=== PATIENT | male | born 1940 | race Caucasian/White ===

== ENCOUNTER 2025-02-12 12:49 | Emergency (ER) | payer MEDICARE, SELFPAY ==
--- OUTSIDE RECORDS SUMMARY | 2025-01-17 09:30 | XMS_ITS | Encounter Summary ---
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 [address] [place] [phone] Phone: tel: fax: [facility] Referral ID Status Reason Start Date Expiration Date Visits Re quested Visits Authorized [id number] Closed 11/30/2024 06/01/2026 1 1 Encounter Details Date Type Department Care Team (Latest Contact Info) Description 01/17/2025 9:30 AM CDT Comprehensive Visit Division of Hematology in [place], [place] [address] [place] [phone] Myron Burrows M.B.B.S. 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 No 10/20/2024 Hunger Vital Sign Answer Date Recorded Within the past 12 months, y ou worried that your food would run out before you got the money to buy more. Never true 10/21/19 25 Within the past 12 months, t he food you bought just didn't last and you didn't have money to get more. Never true 10/20/2024 PRAPARE - Transportation Answer Date Re corded In the past 12 months, has l ack of transportation kept you from medical appointments or from getting medications? No 10/10 In the past 12 months, has l ack of transportation kept you from meetings, work, or from getting things needed for daily living? No 10/20/2024 Housing Stability Answer Date Recorded What is your living situation today? 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BLawrenceS. - 01/17/2025 9:30 AM CDT SUBJECTIVE REFERRAL SOURCE: Marixa Shaikh M.D. CHIEF COMPLAINT/REASON FOR VISIT Dual TET2, PHF6, mutated CMML-1 with -Y. HISTORY OF PRESENT ILLNESS Mr. Malick Walsh is a very pleasant 84-year-old gentleman. The outline of his history is as follows: In February 2024, his CBC had revealed a hemoglobin of 9.3, WBC 7.4, ANC 2.9, AMC 1.7, and a platelet count of 183,000. On 11/08/2024, he underwent a bone marrow biopsy that was noted to be mildly hypercellular (60%) with normal trilineage hematopoiesis. There was a monotypic kappa light chain restricted plasma cell clone seen occupying less than 5% of cellularity. Multiple small monotypic B-cell populations were noted. There was no amyloid deposition. The karyotype revealed 45,X,-Y (20). Next-generation sequencing identified dual TET2 mutations, p.[id number] frameshift-43%, p.[id number] frameshift-44%. There were 3 PHF6 mutations p.arginine 129* - 37%, p.[id number] - 7% and p.isoleucine 314 threonine - 9%. On 12/15/2024, his hemoglobin was 9.3, MCV 97, WBC 5.5, AMC 1.06 and platelet count 123,000. I had the pleasure meeting with Mr. Walsh and his in clinic today. Today is their 63rd wed anniversary. Mr. Walsh is facing challenges from orthostatic syncope and weakness in his lower extremities. He is being evaluated by Neurology for the same. His systolic blood pressures today in clinic are elevated, but he states that is not the case at home. He is willing to record them at home and monitor them closely with his primary care physician. He does not have a history of fevers, drenching night sweats, chills, anorexia, nausea, vomiting, bladder or bowel complaints. His ECOG performance status is 2. MEDICAL HISTORY Prostatic adenocarcinoma diagnosed in 2013, status post radiation therapy with androgen deprivation. Obstructive sleep apnea, on CPAP. 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 Autonomic neuropathy. Orthostatic hypotension. Diverticulitis. Glaucoma. SOCIAL HISTORY The patient is and lives in [place]. He quit smoking in 1988. He does have a history of social alcohol intake. He is currently retired. FAMILY HISTORY No family history of hematological disorders. REVIEW OF SYSTEMS As mentioned in the HPI. OBJECTIVE Blood Pressure: (!) 189/84 (01/17/2025 9:19 AM) Temperature: 36.7 ??C (01/17/2025 9:19 AM) Temp Source: Oral (01/17/2025 9:19 AM) Pulse Rate: (!) 59 (01/17/2025 9:19 AM) BMI (Calculated): 20.8 kg/m?? (01/17/2025 9:19 AM) Height: 180 cm (01/17/2025 9:19 AM) Weight: 67.3 kg (01/17/2025 9:19 AM) PHYSICAL EXAMINATION General: The patient is alert, oriented, in no acute distress. Eyes: Mild pallor. No icterus. ENT: Examined and normal. Lymph: No cervical, axillary, inguinal lymphadenopathy. Heart: Examined and normal. Lungs: Examined and normal. Abdomen: No hepatosplenomegaly. No masses. Extremities: No edema. ASSESSMENT / PLAN #1 Dual TET2 and triple PHF6, mutant CMML-1 with -Y Mr. Walsh is an 84-year-old gentleman who has had sustained relative and absolute monocytosis along with anemia and mild thrombocytopenia. A bone marrow biopsy in October this year has confirmed a diagnosis of CMML-1. He has somatic mutations involving TET2 and PHF6. According to the BLAST-molecular model, his score is 1., translating to a median survival of 74 months, along with a 5-year overall survival rate of 60%. This is largely driven by the fact that the combination of TET2 and PHF6 mutations are favorable in CMML. BLAST: a globally applicable and molecularly versatile survival model for chronic myelomonocytic leukemia - PubMed It remains unclear whether his anemia is purely from chronic myelomonocytic leukemia or from alternative etiologies. We will obtain a comprehensive anemia workup today. If this is attributable to hisCMML, we will continue to monitor and see if options such as erythropoiesis-stimulating agent therapy may be feasible. We will try and avoid danazol, given his history of prostate cancer. He will also be eligible for LS 178, the pilot boat captain clinical trial testing the safety and efficacy of high-dose IV ascorbic acid with decitabine for newly diagnosed and treatment requiring TET2 mutant CMML. #2 Triclonal gammopathy #3 Monoclonal B lymphocytosis #4 Autonomic neuropathy, with orthostatic hypotension I spent 60 minutes with Mr. Walsh and his outlining my approach to his newly diagnosed CMML. I will call and update him with pending results. Crystal Prater CT CT Job ID: [id number]/gld documented in this encounter Plan of Treatment Upcoming Encounters Date Type Department Care Team (Late st Contact Info) Description 02/24/2025 10:00 AM CDT Clinical Support - [facility] Division of Hematology in [place], [place] [address] [place] [address] documented as of this encounter Results * (ABNORMAL) Creatinine with Estimated GFR (01/17/2025 3:02 PM CDT) Creatinine 1.25 0.74 - 1.35 mg/dL 01/17/2025 4:16 PM CDT DTL Estimated GFR (eGFR) 57(L) >=60 mL/min/BSA 01/17/2025 4:16 PM CDT DTL Comment: Estimated GFR calculated using the 2020 CKD_EPI creatinine equation. Blood (Blood, Venous) 01/17/2025 3:02 PM CDT 01/17/2025 3:26 PM CDT Myron Rojas LAB BLOOD ADD-ON Final Result [facility] [address] [place] [address], [facility] DTL [facility] [address] [place] [address] * (ABNORMAL) Testosterone, Total, Bioavailable, and Free (01/17/2025 3:02 PM CDT) Testosterone, Bioavailable, S 17 ng/dL 01/20/2025 1:41 AM CDT [facility] Comment: ----REFERENCE VALUE---- Reference values have not been established for patients who are greater than 70 years of age. ----ADDITIONAL INFORMATION---- Testing performed by Liquid Chromatography-Tandem Mass Spectrometry (LC-MS/MS). This test was developed and its performance characteristics determined by [facility] in a manner consistent with CLIA requirements. This test has not been cleared or approved by the U.S. Food and Drug Administration. Testosterone, Total by Mass Spectrometry, Serum 180(L) 240 - 950 ng/dL 01/19/2025 1:03 PM CDT [facility] Comment: ----ADDITIONAL INFORMATION---- Testing performed by Liquid Chromatography-Tandem Mass Spectrometry (LC-MS/MS). This test was developed and its performance characteristics determined by [facility] in a manner consistent with CLIA requirements. This test has not been cleared or approved by the U.S. Food and Drug Administration. Testosterone, Free, S 3.57 2.88 - 10.5 ng/dL 01/21/2025 3:57 PM CDT [facility] Comment: ----ADDITIONAL INFORMATION---- This test was developed and its performance characteristics determined by [facility] in a manner consistent with CLIA requirements. This test has not been cleared or approved by the U.S. Food and Drug Administration. Blood (Blood, Venous) 01/17/2025 3:02 PM CDT 01/18/2025 7:29 AM CDT Myron Mendoza.S. LAB BLOOD NON ADD-ON F inal Result [facility] [address] [place] [address] [facility] [address] [place] [address] [place] [address] * Erythropoietin (EPO) (01/17/2025 3:02 PM CDT) Pathologist [facility] Erythropoietin (EPO), S 10.8 2.6 - 18.5 mIU/mL 01/18/2025 8:44 AM CDT [facility] Blood (Blood, Venous) 01/17/2025 3:02 PM CDT 01/18/2025 7:39 AM CDT Myron TraceyBLawrenceS. LAB BLOOD ADD-ON Final Result Performing Organization Address City/[facility]/ZIP Co de Phone Number [facility] [address] [place] [address] [facility] [address] [place] [address] * (ABNORMAL) Reticulocyte Profile (01/17/2025 3:02 PM CDT) Reticulocytes, B 1.57 0.60 - 2.71 % 01/17/2025 3:40 PM CDT DTL Absolute Reticulocyte 45.7 30.4 - 110.9 x10(9)/L 01/17/2025 3:40 PM CDT DTL Immature Reticulocyte Fraction 6.6 2.3 - 13.4 % 01/17/2025 3:40 PM CDT DTL Reticulocyte Hemoglobin 32.7 30.0 - 37.6 pg 01/17/2025 3:40 PM CDT DTL Erythrocytes 2.91(L) 4.35 - 5.65 x10(12)/L 01/17/2025 3:40 PM CDT DTL Blood (Blood, Venous) 01/17/2025 3:02 PM CDT 01/17/2025 3:27 PM CDT Myron FragaS. LAB BLOOD ADD-ON Final Result Performing Organization Address City/[facility]/ZIP Co de Phone Number [facility] [address] [place] [address], [facility] [address] [place] [address] * LD (Lactate Dehydrogenase) (01/17/2025 3:02 PM CDT) Lactate Dehydrogenase (LD), S 128 122 - 222 U/L 01/17/2025 4:16 PM CDT DTL Blood (Blood, Venous) 01/17/2025 3:02 PM CDT 01/17/2025 3:26 PM CDT Myron FragaS. LAB BLOOD NON ADD-ON F inal Result Performing Organization Address City/[facility]/ZIP Co de Phone Number [facility] [address] [place] [address], [place] DTL [facility] [address] [place] [address] * (ABNORMAL) Copper (01/17/2025 3:02 PM CDT) Copper, S 136(H) 73 - 129 mcg/dL 01/18/2025 10:09 AM CDT [facility] Comment: ----ADDITIONAL INFORMATION---- This test was developed and its performance characteristics determined by [facility] in a manner consistent with CLIA requirements. This test has not been cleared or approved by the U.S. Food and Drug Administration. Blood (Blood, Venous) 01/17/2025 3:02 PM CDT 01/17/2025 6:16 PM CDT us Myron Madison Caputo. LAB BLOOD NON ADD-ON F inal Result Performing Organization Address [facility] Co de Phone Number [facility] [address] [place] [address] [facility] [address] [place] [address] [place] [address] * (ABNORMAL) Methylmalonic Acid (MMA), Quantitative (01/17/2025 3:02 PM CDT) Methylmalonic Acid, QN, S 0.46(H) <=0.40 nmol/mL 01/20/2025 5:36 PM CDT DT Comment: In this sample, the concentration of methylmalonic acid (MMA) was minimally elevated. As the upper limit of the reference range varies in different laboratories from 0.4 to 0.6 nmol/mL. This finding could be considered normal, especially if the patient does not show other signs of vitamin B12 deficiency. ----ADDITIONAL INFORMATION---- This test was developed and its performance characteristics determined by [facility] in a manner consistent with CLIA requirements. This test has not been cleared or approved by the U.S. Food and Drug Administration. Blood (Blood, Venous) 01/17/2025 3:02 PM CDT 01/17/2025 4:04 PM CDT Myron TraceyB.S. LAB BLOOD ADD-ON Final Result Performing Organization Address [facility]/ZIP Co de Phone Number [facility] [address] [place] [address], [facility] DT 200 [place] [address] * Ferritin (01/17/2025 3:02 PM CDT) Pathologist [facility] Ferritin, S 115 31 - 409 mcg/L 01/17/2025 4:16 PM CDT DTL Blood (Blood, Venous) 01/17/2025 3:02 PM CDT 01/17/2025 3:26 PM CDT Myron TraceyB.S. LAB BLOOD ADD-ON Final Result Performing Organization Address [facility] de Phone Number [facility] [address] [place] [address], [place] [address] * (ABNORMAL) CBC with Differential, Blood (01/17/2025 3:02 PM CDT) Pathologist [facility] Hemoglobin 9.3(L) 13.2 - 16.6 g/dL 01/17/2025 3:40 PM CDT DTL Hematocrit 28.2(L) 38.3 - 48.6 % 01/17/2025 3:40 PM CDT DTL Erythrocytes 2.91(L) 4.35 - 5.65 x10(12)/L 01/17/2025 3:40 PM CDT DTL MCV 96.9 78.2 - 97.9 fL 01/17/2025 3:40 PM CDT DTL RBC Distrib Width 14.0 11.8 - 14.5 % 01/17/2025 3:40 PM CDT DTL Platelet Count 133(L) 135 - 317 x10(9)/L 01/17/2025 3:57 PM CDT DTL Leukocytes 7.5 3.4 - 9.6 x10(9)/L 01/17/2025 3:57 PM CDT DTL Neutrophils 3.12 1.56 - 6.45 x10(9)/L 01/17/2025 3:40 PM CDT [facility] Lymphocytes 2.72 0.95 - 3.07 x10(9)/L 01/17/2025 3:40 PM CDT DTL Monocytes 1.62(H) 0.26 - 0.81 x10(9)/L 01/17/2025 3:40 PM CDT DTL Eosinophils 0.04 0.03 - 0.48 x10(9)/L 01/17/2025 3:40 PM CDT DTL Basophils 0.03 0.01 - 0.08 x10(9)/L 01/17/2025 3:40 PM CDT DTL Blood (Blood, Venous) 01/17/2025 3:02 PM CDT 01/17/2025 3:27 PM CDT Myron Rojas LAB BLOOD ADD-ON Final Result [facility] [address] [place] [address], [facility] DTL [facility] [address] [place] [address] DHPM [facility] 200 [place] [address] documented in this encounter Visit Diagnoses Diagnosis 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
--- OUTSIDE RECORDS SUMMARY | 2025-01-17 11:45 | XMS_ITS | Encounter Summary ---
Author Organization [facility] Address [address] [place] [address] Care Team Providers Care Ocean Import Representative Name Role Phone None Reported, Pcp Primary Care Provider Unavail able Reason for Referral * Outpatient (Routine) - Closed Specialty Diagnoses / Procedures Referred By Hola michaels Referred To Contact Diagnoses Gammopathy Monoclonal Procedures EMG KS EMG NDL NON-EXT W NRV Marixa Falcon M.D. 200 [place] [address] Phone: tel: fax: [facility] Referral ID Status Reason Start Date Expiration Date Visits Re quested Visits Authorized [id number] Closed 12/15/2024 03/17/2026 1 1 Reason for Visit * Outpatient (Routine) - Closed Specialty Diagnoses / Procedures Referred By Hola michaels Referred To Contact Diagnoses Gammopathy Monoclonal Procedures EMG KS EMG NDL NON-EXT W NRV Marixa Falcon M.D. 200 [place] [address] Phone: tel: fax: [facility] Referral ID Status Reason Start Date Expiration Date Visits Re quested Visits Authorized [id number] Closed 12/15/2024 03/17/2026 1 1 Encounter Details Date Type Department Care Team (Latest Contact Info) Description 01/17/2025 11:45 AM CDT - 01/17/2025 2:40 PM CDT Hospital Encounter Department of Neurology in [place], [place] [address] [place] [address] Marixa Shaikh M.D. 200 [place] [address] Gammopathy Monoclonal Discharge Disposition: Home or Self Care Social History Tobacco Use Types Packs/Day Years Used Date Smoking Tobacco: Never Smokeless Tobacco: Never Alcohol Use Standard Drinks/Week Comments Yes 8 (1 standard drink = 0.6 oz pur e alcohol) use all adult life [facility] Utilities Answer Date Recorded In the past 12 months has e electric, gas, oil, or water company threatened [...] your living situation today? 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 latanoprost (XALATAN) 0.005 % ophthalmic solution Administer 1 drop into affected eye(s) at bedtime. Both eyes 05/20/2016 melatonin 2.5 mg chewable tablet Chew. 07/07/2020 multivitamin-iro i-Bx-OY-minerals (THERADEX M) 27-0.4 mg per tablet Take 1 tablet by mouth daily. timolol (TIMOPTIC) 0.5 % ophthalmic solution Administer 1 drop into the right eye every morning. 06/13/2020 documented as of this encounter Plan of Treatment Upcoming Encounters Date Type Department Care Team (Late st Contact Info) Description 02/24/2025 10:00 AM CDT Clinical Support - [facility] Division of Hematology in [place], [place] [address] [place] [address] documented as of this encounter Procedures Procedure Name Priority Date/Time Associated Diagnosis Comments EMG Routine 01/17/2025 11:45 AM CDT Gammopathy Monoclonal documented in this encounter Results * EMG (01/17/2025 11:45 AM CDT) 01/17/2025 12:1 5 PM CDT Narrative EMG - 01/17/2025 1:41 PM CDT Table formatting from the original result was not included. 17-Jan-2025 Electromyography Final Report Study Number: 1 EMG Keyseating Machine Set Up Operator: Alaina Head 127 or [phone] Referred by: MARIXA SHAIKH (127 or [phone]) Referred for: PN Referral Code: 200 RX: 001 SUMMARY: Prior to starting the procedure, the patient's identity was verified, pertinent available records were reviewed, the nature of the procedure was explained, the appropriate sites of the exam were confirmed directly with the patient, and a pre-procedure pause was performed for final verification of all of the above. The right lower limb nerve conduction studies were normal in amplitude, conduction velocity, and latency considering patient's age. The right lower limb needle electromyography showed normal motor unit potentials in distal and proximal muscles. No fibrillation potentials were observed. CLINICAL INTERPRETATION: Normal study. There is no electrodiagnostic evidence of a large fiber peripheral neuropathy. I have reviewed the findings of the examining physician and agree with the interpretation. Fiordaliza Middleton/Sabino Head (127 or [phone])/SMB NERVE CONDUCTIONS Record Rep Normal Normal Distal Normal F-Wave F-Wave Temp Nerve Type Site Stim Side Amp Amp CV CV Lat Lat Lat Est ( C) Fibular Motor EDB R 1.8 (> 2.0) 47 (> 41) 5.4 (< 6.6) 31.3 Tibial Motor AH R 3.8 (> 4.0) 51 (> 40) 4.1 (< 6.1) 52.4 50.8 31.3 Sural Sensory Ankle R 4 (> 0.0) 43 (> 40) 4.2 (< 4.5) 31.3 NEEDLE EMG Ins Spont MUP Recruitment Duration Amplitude Phases Muscle Side Act Fib Fasc Normal Activ Reduced Rapid Long Short High Low % Turns Vastus medialis R NL 0 0 NL Gastrocnemius (medial head) R NL 0 0 NL Tibialis anterior R NL 0 0 NL Peroneus tertius R NL 0 0 NL This interpretation has been electronically signed: Alaina Head M.D. at 01/17/2025 1:41:39 PM CDT Procedure Note Alaina Head M.D. - 01/17/2025 17-Jan-2025 Electromyography Final Report Study Number: 1 EMG Keyseating Machine Set Up Operator: Alaina Head 127 or [phone] Referred by: MARIXA SHAIKH (127 or [phone]) Referred for: PN Referral Code: 200 RX: 001 SUMMARY: Prior to starting the procedure, the patient's identity wasverified, pertinent available records were reviewed, the nature of theprocedure was explained, the appropriate sites of the exam were confirmeddirectly with the patient, and a pre-procedure pause was performed forfinal verification of all of the above. The right lower limb nerve conduction studies were normal in amplitude,conduction velocity, and latency considering patient's age. The right lower limb needle electromyography showed normal motor unitpotentials in distal and proximal muscles. No fibrillation potentials wereobserved. CLINICAL INTERPRETATION: Normal study. There is no electrodiagnosticevidence of a large fiber peripheral neuropathy. I have reviewed the findings of the examining physician and agree with theinterpretation. Fiordaliza Middleton/Sabino Head (127 or [phone])/SMB NERVE CONDUCTIONS Record Rep Normal Normal Distal Normal F-Wave F-Wave Temp Nerve Type Site Stim Side Amp Amp CV CV Lat Lat Lat Est ( C) Fibular Motor EDB R 1.8 (> 2.0) 47 (> 41) 5.4 (< 6.6) 31.3 Tibial Motor AH R 3.8 (> 4.0) 51 (> 40) 4.1 (< 6.1) 52.4 50.8 31.3 Sural Sensory Ankle R 4 (> 0.0) 43 (> 40) 4.2 (< 4.5) 31.3 NEEDLE EMG Ins Spont MUP Recruitment Duration Amplitude Phases Muscle Side Act Fib Fasc Normal Activ Reduced Rapid Long Short High Low %Turns Vastus medialis R NL 0 0 NL Gastrocnemius (medial head) R NL 0 0 NL Tibialis anterior R NL 0 0 NL Peroneus tertius R NL 0 0 NL This interpretation has been electronically signed: Alaina Mac M.D. at 01/17/2025 1:41:39 PM CDT Marixa Shaikh M.D. NEUROLOGY ORDERABLES Edit ed Result - Final [facility] EMG documented in this encounter Visit Diagnoses Diagnosis Gammopathy Monoclonal documented in this encounter Additional Health Concerns Assessment Noted Time PHQ-9 Depression Total Score: 0 02/15/20 14 1:30 PM CDT documented as of this encounter Care Teams Ocean Import Representative Relationship Specialty Start Date End Date None Reported, Pcp PCP - General 03/19/24 documented as of this encounter
--- OUTSIDE RECORDS SUMMARY | 2025-01-17 14:00 | XMS_ITS | Encounter Summary ---
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 [address] [place] [phone] Phone: tel: fax: [facility] Referral ID Status Reason Start Date Expiration Date Visits Re quested Visits Authorized [id number] Closed 12/15/2024 03/17/2026 1 1 Encounter Details Date Type Department Care Team (Late st Contact Info) Description 01/17/2025 2:00 PM CDT Infusion Department of Infusion Therapy in [place], [place] [address] [place] [address] [phone] Marixa Shaikh M.D. [address] [place] [phone] Gammopathy Monoclonal; Neuropathy Autonomic Peripheral Idiopathic Social History Tobacco Use Types Packs/Day Years Used Date Smoking Tobacco: Never Smokeless Tobacco: Never Alcohol Use Standard Drinks/Week Comments Yes 8 (1 standard drink = 0.6 oz pur e alcohol) use all adult life [facility] Utilities Answer Date Recorded In the past 12 months has [employer], gas, oil, or water company threatened [...] your living situation today? 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 - 01/17/2025 2:00 PM CDTAssociated Order(s): Fat Aspirate Pre-Procedure Diagnose(s): Gammopathy Monoclonal; Neuropathy Autonomic Peripheral Idiopathic Post-Procedure Diagnose(s): Gammopathy Monoclonal; Neuropathy Autonomic Peripheral Idiopathic Fat Aspirate Performed by: Rigoberto Kwok R.N. Authorized by: Marixa Shaikh M.D. Care team members present 1. Rigoberto Kwok R.N. PROCEDURE DETAILS Procedure: Fat aspirate Fat aspirate Location: Right abdominal wall and left abdominal wall Needle size (gauge): 18 # Slides obtained: 4 Aspirate volume (mL): 0.5 CONSENT Consent obtained: written (Risks, benefits and alternatives were discussed and a written Informed Consent was obtained. Please see Informed Consent form for further details.) [employer] All relevant documentation and testing were reviewed and available. All required blood products, implants, devices and or special equipment were made available as applicable. Pre-procedure verification was conducted and the correct site was marked if required. A fire risk and smoke assessment were done as applicable. The procedural time-out to verify correct patient, correct side/site, and procedure was conducted prior to performing the procedure and confirmed in a procedural pause. PRE-PROCEDURE DETAILS Appropriate hand hygiene, gown, cap, mask, protective eyewear, sterile gloves, skin preparation, sterile drape, and strict aseptic technique were utilized as applicable for the procedure.: yes Site preparation: alcohol SEDATION / ANESTHESIA Anesthesia method: local infiltration Local infiltrate type: lidocaine POST-PROCEDURE DETAILS Procedure completed successfully: yes Procedure tolorated: Well Post procedure pain scale: 0/10 Complications: no apparent complications Post-procedure instructions: Post-procedure activity instructions provided COMMENTS Total of 20 mg 1% lidocaine administered SQ Band-aids applied Pamphlet [id number] given to patient documented in this encounter Plan of Treatment Upcoming Encounters Date Type Department Care Team (Late st Contact Info) Description 02/24/2025 10:00 AM CDT Clinical Support - [facility] Division of Hematology in [place], [place] [address] [place] [phone] documented as of this encounter Procedures Procedure Name Priority Date/Time Associated Diagnosis Comments NC FNA BX WO IMG 1ST LESION Routine 01/17/2025 2:00 PM CDT 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 - 01/17/2025 2:00 PM CDT Rigoberto Kwok R.N. 01/17/2025 2:25 PM Fat Aspirate Performed by: Rigoberto Kwok R.N. Authorized by: Marixa Shaikh M.D. Care team members present 1. Rigoberto Kwok R.N. PROCEDURE DETAILS Procedure: Fat aspirate Fat aspirate Location: Right abdominal wall and left abdominal wall Needle size (gauge): 18 # Slides obtained: 4 Aspirate volume (mL): 0.5 CONSENT Consent obtained: written (Risks, benefits and alternatives were discussed and a written Informed Consent was obtained. Please see Informed Consent form for further details.) [employer] All relevant documentation and testing were reviewed and available. All required blood products, implants, devices and or special equipment were made available as applicable. Pre-procedure verification was conducted and the correct site was marked if required. A fire risk and smoke assessment were done as applicable. The procedural time-out to verify correct patient, correct side/site, and procedure was conducted prior to performing the procedure and confirmed in a procedural pause. PRE-PROCEDURE DETAILS Appropriate hand hygiene, gown, cap, mask, protective eyewear, sterile gloves, skin preparation, sterile drape, and strict aseptic technique were utilized as applicable for the procedure.: yes Site preparation: alcohol SEDATION / ANESTHESIA Anesthesia method: local infiltration Local infiltrate type: lidocaine POST-PROCEDURE DETAILS Procedure completed successfully: yes Procedure tolorated: Well Post procedure pain scale: 0/10 Complications: no apparent complications Post-procedure instructions: Post-procedure activity instructions provided COMMENTS Total of 20 mg 1% lidocaine administered SQ Band-aids applied Pamphlet [id number] given to patient Marixa Shaikh M.D. PROCEDURE/MINOR SURGICAL ORDERABLES Final Result * Subcutaneous Fat Aspirate (01/17/2025 12:00 AM CDT) 01/18/2025 2:[address] [facility] Report electronically signed by Taryn Castillo M.D. I verify that I have examined all relevant slides/material s for the specimen(s) and rendered or confirmed the diagnosis. 01/18/2025 2:[address] [facility] Gross Description The subcutaneous fat aspirate used for diagnostic purposes consists of 0.5 mL fat. 01/18/2025 2:[address] [facility] Interpretation FINAL DIAGNOSIS Congo red stain, abdominal subcutaneous fat aspirate specimen: Amyloid is absent. 01/18/2025 2:[address] [facility] 01/17/2025 01/17/2025 5:5 9 AM CDT Marixa H Abdallah M.D. 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
--- OUTSIDE RECORDS SUMMARY | 2025-01-17 14:41 | XMS_ITS | Encounter Summary ---
Author Organization [facility] Address [address] [place] [address] Care Team Providers Care Diagnostics Sales Developer Name Role Phone None Reported, Pcp Primary Care Provider Unavail able Encounter Details Date Type Department Care Team (Latest Contact Info) Description 01/17/2025 2:41 PM CDT - 01/17/2025 11:59 PM CDT Hospital Encounter Department of Laboratory Medicine and Pathology, [facility], in [place], [place] [address] [place] [address] Myron Burrows M.B.B.S. 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 latanoprost (XALATAN) 0.005 % ophthalmic solution Administer 1 drop into affected eye(s) at bedtime. Both eyes 05/20/2016 melatonin 2.5 mg chewable tablet Chew. 07/07/2020 multivitamin-iro q-Db-FB-minerals (THERADEX M) 27-0.4 mg per tablet Take 1 tablet by mouth daily. timolol (TIMOPTIC) 0.5 % ophthalmic solution Administer 1 drop into the right eye every morning. 06/13/2020 documented as of this encounter Plan of Treatment Upcoming Encounters Date Type Department Care Team (Late st Contact Info) Description 02/24/2025 10:00 AM CDT Clinical Support - 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) METHYLMALONIC ACID (MMA), DANA, S Routine 01/17/2025 3:02 PM CDT 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) COPPER, S Routine 01/17/2025 3:02 PM CDT 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) CBC WITH DIFFERENTIAL, B Routine 01/17/2025 3:02 PM CDT 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) LACTATE DEHYDROGENASE (LD), S Routine 01/17/2025 3:02 PM CDT 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 Blood (Blood, Venous) 01/17/2025 3:02 PM CDT 01/17/2025 3:26 PM CDT us Myron Rojas LAB BLOOD ADD-ON Final Result [facility] [address] [place] [address], [facility] DTL [facility] [address] [place] [address] * (ABNORMAL) Testosterone, Total, Bioavailable, and Free (01/17/2025 3:02 PM CDT) [facility] Testosterone, Bioavailable, S 17 ng/dL 01/20/2025 1:41 AM CDT [facility] Comment: ----REFERENCE VALUE---- Reference values have not been established for patients who are greater than 70 years of age. ----ADDITIONAL INFORMATION---- Testing performed by Liquid Chromatography-Tandem Mass Spectrometry (LC-MS/MS). This test was developed and its performance characteristics determined by [facility] in a manner consistent with CLIA requirements. This test has not been cleared or approved by the U.S. Food and Drug Administration. Testosterone, Total by Mass Spectrometry, Serum 180(L) 240 - 950 ng/dL 01/19/2025 1:03 PM CDT [facility] Comment: ----ADDITIONAL INFORMATION---- Testing performed by Liquid Chromatography-Tandem Mass Spectrometry (LC-MS/MS). This test was developed and its performance characteristics determined by [facility] in a manner consistent with CLIA requirements. This test has not been cleared or approved by the U.S. Food and Drug Administration. Testosterone, Free, S 3.57 2.88 - 10.5 ng/dL 01/21/2025 3:57 PM CDT [facility] Comment: ----ADDITIONAL INFORMATION---- This test was developed and its performance characteristics determined by [facility] in a manner consistent with CLIA requirements. This test has not been cleared or approved by the U.S. Food and Drug Administration. Blood (Blood, Venous) 01/17/2025 3:02 PM CDT 01/18/2025 7:29 AM CDT us Myron Rojas LAB BLOOD NON ADD-ON F inal Result [facility] [address] [place] [address] [facility] [address] [place] [address] [place] [address] * Erythropoietin (EPO) (01/17/2025 3:02 PM CDT) Erythropoietin (EPO), S 10.8 2.6 - 18.5 mIU/mL 01/18/2025 8:44 AM CDT [facility] Blood (Blood, Venous) 01/17/2025 3:02 PM CDT 01/18/2025 7:39 AM CDT Myron FragaS. LAB BLOOD ADD-ON Final Result Performing Organization Address City/[facility]/ZIP Co de Phone Number [facility] [address] [place] [address] [facility] [address] [place] [address] * (ABNORMAL) Reticulocyte Profile (01/17/2025 3:02 PM CDT) Pathologist [facility] Reticulocytes, B 1.57 0.60 - 2.71 % 01/17/2025 3:40 PM CDT DTL Absolute Reticulocyte 45.7 30.4 - 110.9 x10(9)/L 01/17/2025 3:40 PM CDT DTL Immature Reticulocyte Fraction 6.6 2.3 - 13.4 % 01/17/2025 3:40 PM CDT DTL Reticulocyte Hemoglobin 32.7 30.0 - 37.6 pg 01/17/2025 3:40 PM CDT DTL Erythrocytes 2.91(L) 4.35 - 5.65 x10(12)/L 01/17/2025 3:40 PM CDT DT Blood (Blood, Venous) 01/17/2025 3:02 PM CDT 01/17/2025 3:27 PM CDT Myron FragaS. LAB BLOOD ADD-ON Final Result [facility] [address] [place] [address], [place] DTL [facility] [address] [place] [address] * LD (Lactate Dehydrogenase) (01/17/2025 3:02 PM CDT) Pathologist [facility] Lactate Dehydrogenase (LD), S 128 122 - 222 U/L 01/17/2025 4:16 PM CDT DTL Blood (Blood, Venous) 01/17/2025 3:02 PM CDT 01/17/2025 3:26 PM CDT [facility] TraceyB.S. LAB BLOOD NON ADD-ON F inal Result Performing Organization Address [facility] [place]/[facility] de Phone Number [facility] [address] [place] [address], [facility] [address] [place] [address] * (ABNORMAL) Copper (01/17/2025 3:02 PM CDT) Pathologist [facility] Copper, S 136(H) 73 - 129 mcg/dL 01/18/2025 10:09 AM CDT [facility] Comment: ----ADDITIONAL INFORMATION---- This test was developed and its performance characteristics determined by [facility] in a manner consistent with CLIA requirements. This test has not been cleared or approved by the U.S. Food and Drug Administration. Blood (Blood, Venous) 01/17/2025 3:02 PM CDT 01/17/2025 6:16 PM CDT [facility] [place] TraceyB.S. LAB BLOOD NON ADD-ON F inal Result Performing Organization Address [facility] Co de Phone Number [facility] [address] [place] [address] [facility] [address] [place] [address] [place] [address] * (ABNORMAL) Methylmalonic Acid (MMA), Quantitative (01/17/2025 3:02 PM CDT) Pathologist [facility] Methylmalonic Acid, QN, S 0.46(H) <=0.40 nmol/mL 01/20/2025 5:36 PM CDT DTL Comment: In this sample, the concentration of methylmalonic acid (MMA) was minimally elevated. As the upper limit of the reference range varies in different laboratories from 0.4 to 0.6 nmol/mL. This finding could be considered normal, especially if the patient does not show other signs of vitamin B12 deficiency. ----ADDITIONAL INFORMATION---- This test was developed and its performance characteristics determined by [facility] in a manner consistent with CLIA requirements. This test has not been cleared or approved by the U.S. Food and Drug Administration. Blood (Blood, Venous) 01/17/2025 3:02 PM CDT 01/17/2025 4:04 PM CDT Myron TraceyB.S. LAB BLOOD ADD-ON Final Result Performing Organization Address City/[facility]/ZIP Co de Phone Number [facility] [address] DT [address] [place] [address] * Ferritin (01/17/2025 3:02 PM CDT) Pathologist [facility] Ferritin, S 115 31 - 409 mcg/L 01/17/2025 4:16 PM CDT DTL Blood (Blood, Venous) 01/17/2025 3:02 PM CDT 01/17/2025 3:26 PM CDT Myron TraceyB.S. LAB BLOOD ADD-ON Final Result Performing Organization Address City/[facility]/ZIP Co de Phone Number [facility] [address] [place] [address], [facility] [place] [address] [place] [address] * (ABNORMAL) CBC with Differential, Blood (01/17/2025 3:02 PM CDT) Pathologist [facility] Hemoglobin 9.3(L) 13.2 - 16.6 g/dL 01/17/2025 [...] 3:02 PM CDT 01/17/2025 3:27 PM CDT us Myron Rojas LAB BLOOD ADD-ON Final Result [facility] [address] [place] [address], [place] DTL 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
--- OUTSIDE RECORDS SUMMARY | 2025-01-25 10:30 | XMS_ITS | Encounter Summary ---
Author Organization [facility] Address [address] [place] [address] Care Team Providers Care Hardwood Sawyer Name Role Phone None Reported, Pcp Primary Care Provider Unavail able Reason for Visit * Appointment Request (Routine) - Closed Specialty Diagnoses / Procedures Referred By Contac t Referred To Contact Hematology Referral ID Status Reason Start Date Expiration Date Visits Re quested Visits Authorized [id number] Closed 01/25/2025 04/27/2026 1 1 Encounter Details Date Type Department Care Team (Late st Contact Info) Description 01/25/2025 10:30 AM CDT Clinical Support - [facility] Division of Hematology in [place], [place] [address] [place] [address] Alexandra Montejo [address] [place] [phone] Social History Tobacco Use Types Packs/Day Years Used Date Smoking Tobacco: Never Smokeless Tobacco: Never Alcohol Use Standard Drinks/Week Comments Yes 8 (1 standard drink = 0.6 oz pur e alcohol) use all adult life [facility] Utilities Answer Date Recorded In the past 12 months has th e [employer], gas, oil, or water [employer] threatened to shut off services in your [...] PM CDT Legal Sex Male 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 Gender Identity Male 08/19/2023 4:29 PM CDT Sexual Orientation Straight 08/19/2023 4: 29 PM CDT documented as of this encounter Plan of Treatment Upcoming Encounters Date Type Department Care Team (Late st Contact Info) Description 02/24/2025 10:00 AM CDT Clinical Support - [facility] Division of Hematology in [place], [place] [address] [place] [address] documented as of this encounter Visit Diagnoses Not on filedocumented in this encounter Additional Health Concerns Assessment Noted Time PHQ-9 Depression Total Score: 0 02/15/20 14 1:30 PM CDT documented as of this encounter Care Teams Hardwood Sawyer Relationship Specialty Start Date End Date None Reported, Pcp PCP - General 03/19/24 documented as of this encounter
--- OUTSIDE RECORDS SUMMARY | 2025-01-26 12:45 | XMS_ITS | Encounter Summary ---
Author Organization [facility] Address [address] [place] [address] Care Team Providers Care Flue Cleaner Name Role Phone None Reported, Pcp Primary Care Provider Unavail able Reason for Visit * Appointment Request (Routine) - Authorized Specialty Diagnoses / Procedures Referred By Contac t Referred To Contact Hematology Referral ID Status Reason Start Date Expiration Date V isits Requested Visits Authorized [id number] Authorized 01/26/2025 04/28/2026 1 1 Encounter Details Date Type Department Care Team (Late st Contact Info) Description 01/26/2025 12:45 PM CDT Clinical Support - [facility] Division of Hematology in [place], [place] [address] [place] [address] Alexandra Montejo [address] [place] [phone] Social History Tobacco Use Types Packs/Day Years Used Date Smoking Tobacco: Never Smokeless Tobacco: Never Alcohol Use Standard Drinks/Week Comments Yes 8 (1 standard drink = 0.6 oz pur e alcohol) use all adult life [facility] Utilities Answer Date Recorded In the past 12 months has th e [employer], gas, oil, or water [employer] threatened to shut off services in your [...] PM CDT 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 Gender Identity Male 08/19/2023 4:29 PM CDT Sexual Orientation Straight 08/19/2023 4: 29 PM CDT documented as of this encounter Plan of Treatment Upcoming Encounters Date Type Department Care Team (Late st Contact Info) Description 02/24/2025 10:00 AM CDT Clinical Support - [facility] Division of Hematology in [place], [place] [address] [place] [address] documented as of this encounter Visit Diagnoses Not on filedocumented in this encounter Additional Health Concerns Assessment Noted Time PHQ-9 Depression Total Score: 0 02/15/20 14 1:30 PM CDT documented as of this encounter Care Teams Flue Cleaner Relationship Specialty Start Date End Date None Reported, Pcp PCP - General 03/19/24 documented as of this encounter
--- OUTSIDE RECORDS SUMMARY | 2025-01-27 13:30 | XMS_ITS | Encounter Summary ---
Author Organization [facility] Address [address] [place] [id number] Care Team Providers Care Director Food Safety Name Role Phone None Reported, Pcp Primary Care Provider Unavail able Reason for Visit * Appointment Request (Routine) - Closed Specialty Diagnoses / Procedures Referred By Contac t Referred To Contact Hematology Referral ID Status Reason Start Date Expiration Date Visits Re quested Visits Authorized [id number] Closed 01/26/2025 04/28/2026 1 1 Encounter Details Date Type Department Care Team (Late st Contact Info) Description 01/27/2025 1:30 PM CDT Clinical Support - [facility] Division of Hematology in [place], [place] [address] [place] [address] Alexandra Montejo [address] [place] [phone] Social History Tobacco Use Types Packs/Day Years Used Date Smoking Tobacco: Never Smokeless Tobacco: Never Alcohol Use Standard Drinks/Week Comments Yes 8 (1 standard drink = 0.6 oz pur e alcohol) use all adult life [facility] Utilities Answer Date Recorded In the past 12 months has th e [employer], gas, oil, or water [employer] threatened to shut off services in your [...] PM CDT 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 Gender Identity Male 08/19/2023 4:29 PM CDT Sexual Orientation Straight 08/19/2023 4: 29 PM CDT documented as of this encounter Plan of Treatment Upcoming Encounters Date Type Department Care Team (Late st Contact Info) Description 02/24/2025 10:00 AM CDT Clinical Support - [facility] Division of Hematology in [place], [place] [address] [place] [phone] documented as of this encounter Visit Diagnoses Not on filedocumented in this encounter Additional Health Concerns Assessment Noted Time PHQ-9 Depression Total Score: 0 02/15/20 14 1:30 PM CDT documented as of this encounter Care Teams Director Food Safety Relationship Specialty Start Date End Date None Reported, Pcp PCP - General 03/19/24 documented as of this encounter
--- OUTSIDE RECORDS SUMMARY | 2025-02-12 12:51 | XMS_ITS | Clinical Summary ---
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 Gender Identity Not on file Sexual Orientation Not on file Plan of Treatment Health Maintenance Due Date Last Done Comments ADVANCE CARE PLANNING 1940 ANNUAL REVIEW OF HM ORDERS 1940 FALL RISK ASSESSMENT 2005 DTAP/TDAP/TD VACCINE (1 - Tdap) 08/14/2011 08/13/2011, 09/22/2006 ZOSTER VACCINE (2 of 3) 02/07/2012 12/13/2011 RSV VACCINE (1 - 1-dose 75+ series) 08/12/2015 PHQ-2 (once per calendar year) 2024 COVID-19 VACCINE (3 - season) 2025 07/14/2020, 06/23/2020 INFLUENZA VACCINE (#1) 2025 , 05/07/2019, 02/12/2018, Additional history exists PNEUMOCOCCAL VACCINE 50+ YEARS Completed 03/14/2014, 09/22/2006 HPV VACCINE (No Doses Required) Completed MENINGITIS VACCINE Aged Out No longer eligible based on patient's age to complete this topic Insurance [facility] [employer] MEDICARE Care Teams Head Filter Press Tender Relationship Specialty Start Date End Date No Ref-Primary, Physician PCP - General 06/23/20
--- OUTSIDE RECORDS SUMMARY | 2025-02-12 12:51 | XMS_ITS | Clinical Summary ---
Author Organization [facility] Address [address] [place] [address] Care Team Providers Care Ornithology Teacher Name Role Phone None Reported, Pcp Primary Care Provider Unavail able Source Comments Patient records contain information from all sites at [facility]. For routine questions regarding patient records, call [phone] during business hours, M-F 8:00 AM - 5:00 PM Central Time. Record requests for emergency care only can be directed to [phone] at any time.[facility] Allergies No known active allergies Medications * This document contains information received from the source organization and may not represent a complete record from that organization. latanoprost (XALATAN) 0.005 % ophthalmic solution Administer 1 drop into affected eye(s) at bedtime. Both eyes 7 Active melatonin 2.5 mg chewable tablet Chew. 1 Active timolol (TIMOPTIC) 0.5 % ophthalmic solution Administer 1 drop into the right eye every morning. 1 Active multivitamin-i boc-Gf-HN-mine rals (THERADEX M) 27-0.4 mg per tablet Take 1 tablet by mouth daily. Active iron,carb/vit C/vit B12/folic (IRON 100 PLUS ORAL) Take 320 mg by mouth daily. Active cyanocobalamin (Vitamin B-12) 1,000 mcg tablet Take 1 tablet (1,000 mcg total) by mouth daily. 90 tablet 1 01/25/2025 2:17 PM CDT 5 Active pregabalin (LYRICA) 25 mg capsule Take 75-100 mg by mouth daily. 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 05/13/2013 Gastroesophageal Reflux Disease NOS 07/13/2012 Keratosis Actinic 08/13/2011 Impairment Cognitive Mild 08/13/2011 Hemorrhoidal Tag 08/13/2011 Glaucoma NOS 08/13/2011 Dysfunction Erectile 08/13/2011 Pain Back 02/18/2011 Rosacea 01/29/2011 Loss Hearing Sensorineural Bilateral 04/13/2009 Resolved Problems Problem Noted Date Diagnosed Date Resolved Date Abnormal Findings On Diagnos tic Imaging Of Other Specified Body Structures 08/23/2021 02/03/20 22 Encounters Date Type Department Care Team Description 01/27/2025 1:30 PM CDT Clinical Support - [facility] Division of Hematology in [place], [place] [address] [place] [address] Alexandra Montejo 01/26/2025 12:45 PM CDT Clinical Support - [facility] Division of Hematology in [place], [place] [address] [place] [address] Alexandra Montejo 01/25/2025 10:30 AM CDT Clinical Support - [facility] Division of Hematology in [place], [place] [address] [place] [address] Alexandra Montejo 01/25/2025 Orders Only Division of Hematology in [place], [place] [address] [place] [phone] Myron Burrows M.B.B.S. Anemia B12 Deficiency (Primary Dx) 01/25/2025 Orders Only Division of Hematology in [place], [place] [address] [place] [phone] Myron Burrows M.B.B.S. 01/24/2025 Results Follow-Up Division of Hematology in [place], [place] [address] [place] [phone] Pauline Estrada M.D. Fat Aspirate 01/17/2025 2:41 PM CDT - 01/17/2025 11:59 PM CDT Hospital Encounter Department of Laboratory Medicine and Pathology, [facility] in [place], [place] [address] [place] [phone] Myron Burrows M.B.B.S. 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 Gammopathy Monoclonal; Neuropathy Autonomic Peripheral Idiopathic 01/17/2025 11:45 AM CDT - 01/17/2025 2:40 PM CDT Hospital Encounter Department of Neurology in [place], [place] [address] [place] [phone] Pauline Estrada M.D. Gammopathy Monoclonal Discharge Disposition: Home or Self Care 01/17/2025 9:30 AM CDT Comprehensive Visit Division of Hematology in [place], [place] [address] [place] [phone] Myron Burrows M.B.B.S. 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 Gammopathy Monoclonal (Primary Dx); Neuropathy Autonomic Peripheral Idiopathic 12/15/2024 9:57 AM CDT - 12/15/2024 11:59 PM CDT Hospital Encounter Department of Radiology, [facility] in [place], [place] [address] [place] [phone] Pauline Estrada M.D. Gammopathy Monoclonal; Abnormality Of Plasma Protein Unspecified Discharge Disposition: Home or Self Care 11/30/2024 Clinical Communication Division of Hematology in [place], [place] [address] [place] [phone] Pauline Estrada M.D. CHIP Consult Triage Denied 11/25/2024 Orders Only Division of Hematology in [address] [phone] Pauline Estrada M.D. Anemia (Primary Dx) 11/16/2024 11:30 AM CDT Telemedicine Division of Hematology in [place], [place] [address] [place] [address] Pauline Estrada M.D. Gammopathy Monoclonal (Primary Dx) from Last 3 Months Immunizations Immunization Administration Dates Next Due DT, Pediatric 09/22/2006 HZV (ZOSTAVAX) 12/13/2011 Influenza TIV (IM) 02/12/2018, 7,03/12/2012,2010,04/05/2008,03/09/2007,04/25/2006,1 06/26/2004 Influenza high dose QV(65 ye ars or older) (PF) 02/28/2021 Influenza, Quadrivalent, Adj uvanted, Preservative Free 02/18/2020 Influenza, Seasonal, Injectable 03/12/20 12,04/05/2008,03/09/2007,2005,04/25/2005 Influenza, Unspecified 02/20/2009 PCV13 03/14/2014 PPSV23 09/22/2006 RZV (SHINGRIX) 11/09/2020,08/15/2020 Td Preservative Free (TENIVA C, DECAVAC) 08/13/2011,09/22/2006 influenza trivalent high dos e (HD)(PF) 05/07/2019,05/13/2016,03/06/2015,2013 influenza trivalent vaccine (6 months and older)(PF) 01/29/2011 Family History Medical History Relation Name Comments Colon polyps Father Benito de Malignon Coronary artery disease Father Benito de Malignon Rheumatoid arthritis (RA) Mother Pat de Malignon Relation Name Status Comments Father Benito de Malignon Alive Mother Pat de Malignon Alive Social History Tobacco Use Types Packs/Day Years Used Date Smoking Tobacco: Never Smokeless Tobacco: Never Tobacco Cessation:Counseling Given: Not Answered Alcohol Use Standard Drinks/Week Comments Yes 8 (1 standard drink = 0.6 oz pur e alcohol) use all adult life [facility] Utilities Answer Date Recorded In the past 12 months has th e electric, gas, oil, or water [employer] threatened to shut off services in your [...] your living situation today? 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 Gender Identity Male 08/19/2023 4:29 PM CDT Sexual Orientation Straight 08/19/2023 4: 29 PM CDT Last Filed Vital Signs Vital Sign Reading Time Taken Comments Blood Pressure 189/84 01/17/2025 9:19 AM CDT Pulse 59 01/17/2025 9:19 AM CDT Temperature 36.7 C (98 F) 01/17/2025 9:19 AM CDT Respiratory Rate 15 11/08/2024 3:25 PM CDT Oxygen Saturation 97% 11/08/2024 3:25 PM CDT Inhaled Oxygen Concentration - - Weight 67.3 kg (148 lb 5.9 oz) 01/17/2025 9:19 A M CDT Height 180 cm (5' 10.87) 01/17/2025 9:19 AM CDT Body Mass Index 20.77 01/17/2025 9:19 AM CDT Plan of Treatment Upcoming Encounters Date Type Department Care Team (Late st Contact Info) Description 02/24/2025 10:00 AM CDT Clinical Support - [facility] Division of Hematology in [place], [place] [address] [place] [address] Health Maintenance Due Date Last Done Comments Depression Screening (Annual PHQ-2) 05/12/2024 Influenza Vaccine (#1) 2025 , 02/26/2023, 01/17/2022, Additional history exists COVID-19 Vaccine (2024- season) 2025 01/13/2025, 07/29/2023, 02/26/2023, Additional history exists DTaP,Tdap,and Td Vaccines (4 - Td or Tdap) 05/24/2032 05/24/2022, 08/13/2011, 09/22/2006, Additional history exists Zoster Vaccines Completed 11/09/2020, 10/2020, 12/13/2011 Pneumococcal vaccine (50+ years) Completed 05/23/2022, 03/14/2014, 09/22/2006 RSV vaccine - (32-36 weeks) or 50+ years Completed 07/29/2023 Fall Risk Screen (Annual) Completed 11/08/2024 IPV Vaccines Aged Out No longer eligi ble based on patient's age to complete this topic Procedures Procedure Name Priority Date/Time Associated Diagnosis Comments CREATININE WITH EGFR, S/P Routine 01/17/2025 3:02 PM CDT 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) TESTOSTERONE, TOT, BIOAVAILABLE, AND FREE, S Routine 01/17/2025 3:02 PM CDT 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) ERYTHROPOIETIN (EPO), S Routine 01/17/2025 3:02 PM CDT 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) RETICULOCYTE PROFILE, B Routine 01/17/2025 3:02 PM [...] 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) [place] FNA BX WO IMG 1ST [place]ES[place] Routine 01/17/2025 2:00 PM CDT 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 EMG Routine 01/17/2025 11:45 AM CDT Gammopathy Monoclonal SUBCUTANEOUS FAT ASPIRATE Routine 01/17/2025 12:[address] SKULL TO THIGH RAD - Routine (most inpatients and all outpatients) 12/15/2024 1:15 PM CDT Gammopathy Monoclonal Abnormality Of Plasma Protein Unspecified CBC WITH DIFFERENTIAL, B Routine 12/15/2024 1:12 PM CDT Gammopathy Monoclonal COMPREHENSIVE METABOLIC PANEL, S/P Routine 12/15/2024 1:11 PM CDT Gammopathy Monoclonal CONNECTIVE TISSUE DISEASE CASCADE, KEN, S Routine 12/15/2024 1:11 PM CDT Gammopathy Monoclonal from Last 3 Months Results * (ABNORMAL) Reticulocyte Profile (01/17/2025 3:02 PM CDT) Pathologist Hina Reticulocytes, B 1.57 0.60 - 2.71 % [...] Result [facility] [address] [place] [address], [facility] [address] [place] [address] * (ABNORMAL) Testosterone, Total, Bioavailable, and Free (01/17/2025 3:02 PM CDT) Pathologist [facility] Testosterone, Bioavailable, S 17 ng/dL 01/20/2025 1:41 AM CDT [facility] Comment: ----REFERENCE VALUE---- Reference values have not been established for patients who are greater than 70 years of age. ----ADDITIONAL INFORMATION---- Testing performed by Liquid Chromatography-Tandem Mass Spectrometry (LC-MS/MS). This test was developed and its performance characteristics determined by [facility] in a manner consistent with CLIA requirements. This test has not been cleared or approved by the U.S. Food and Drug Administration. Testosterone, Total by Mass Spectrometry, Serum 180(L) 240 - 950 ng/dL 01/19/2025 1:03 PM CDT [facility] Comment: ----ADDITIONAL INFORMATION---- Testing performed by Liquid Chromatography-Tandem Mass Spectrometry (LC-MS/MS). This test was developed and its performance characteristics determined by [facility] in a manner consistent with CLIA requirements. This test has not been cleared or approved by the U.S. Food and Drug Administration. Testosterone, Free, S 3.57 2.88 - 10.5 ng/dL 01/21/2025 3:57 PM CDT [facility] Comment: ----ADDITIONAL INFORMATION---- This test was developed and its performance characteristics determined by [facility] in a manner consistent with CLIA requirements. This test has not been cleared or approved by the U.S. Food and Drug Administration. Blood (Blood, Venous) 01/17/2025 3:02 PM CDT 01/18/2025 7:29 AM CDT Myron TraceyB.S. LAB BLOOD NON ADD-ON F inal Result Performing Organization Address [facility] Co de Phone Number [facility] [address] [place], [place] [address] [address] [place] [address] [place] [address] * Erythropoietin (EPO) (01/17/2025 3:02 PM CDT) Erythropoietin (EPO), S 10.8 2.6 - 18.5 mIU/mL 01/18/2025 8:44 AM CDT [facility] Blood (Blood, Venous) 01/17/2025 3:02 PM CDT 01/18/2025 7:39 AM CDT Myron TraceyB.S. LAB BLOOD ADD-ON Final Result Performing Organization Address [facility] Co de Phone Number [facility] [address] [place] [address] [facility] [address] [place] [address] * (ABNORMAL) Methylmalonic Acid (MMA), Quantitative (01/17/2025 [...] developed and its performance characteristics determined by [facility] in a manner consistent with CLIA requirements. This test has not been cleared or approved by the U.S. Food and Drug Administration. Blood (Blood, Venous) 01/17/2025 3:02 PM CDT 01/17/2025 4:04 PM CDT Myron TraceyB.S. LAB BLOOD ADD-ON Final Result Performing Organization Address [facility] Co de Phone Number [facility] [address] [place] [address], [facility] 200 [facility] [address] [place] [address] * (ABNORMAL) Copper (01/17/2025 3:02 PM CDT) Pathologist [facility] Copper, S 136(H) 73 - 129 mcg/dL 01/18/2025 10:09 AM CDT [facility] Comment: ----ADDITIONAL INFORMATION---- This test was developed and its performance characteristics determined by [facility] in a manner consistent with CLIA requirements. This test has not been cleared or approved by the U.S. Food and Drug Administration. Blood (Blood, Venous) 01/17/2025 3:02 PM CDT 01/17/2025 6:16 PM CDT Myron HurtadoBLawrenceB.S. LAB BLOOD NON ADD-ON F inal Result [facility] [address] [place] [address] [facility] [address] [place] [address] [place] [address] * (ABNORMAL) CBC with Differential, Blood (01/17/2025 3:02 PM CDT) Only the most recent of2 resultswithin the time period is included. Hemoglobin 9.3(L) 13.2 - 16.6 g/dL 01/17/2025 [...] CDT 01/17/2025 3:27 PM CDT us Myron FragaSLawrence LAB BLOOD ADD-ON Final Result [facility] [address] [place] [address], [place] DTL [facility] [address] [place] [address] DHPM [facility] [address] [place] [address] * LD (Lactate Dehydrogenase) (01/17/2025 3:02 PM CDT) Lactate Dehydrogenase (LD), S 128 122 - 222 U/L 01/17/2025 4:16 PM CDT DTL Blood (Blood, Venous) 01/17/2025 3:02 PM CDT 01/17/2025 3:26 PM CDT Myron S Stormy M.B.B.S. LAB BLOOD NON ADD-ON F inal Result Performing Organization Address City/[facility]/[place] [address] * Ferritin (01/17/2025 3:02 PM CDT) Ferritin, S 115 31 - 409 mcg/L 01/17/2025 4:16 PM CDT DT Blood (Blood, Venous) 01/17/2025 3:02 PM CDT 01/17/2025 3:26 PM CDT Myron S Stormy Berger.B.B.S. LAB [place] [address] * (ABNORMAL) Creatinine with Estimated GFR (01/17/2025 3:02 PM CDT) Creatinine 1.25 0.74 - 1.35 mg/dL 01/17/2025 4:16 PM CDT DT Estimated GFR (eGFR) 57(L) >=60 mL/min/BSA 01/17/2025 4:16 PM CDT DTL Comment: Estimated GFR calculated using the 2020 CKD_EPI creatinine equation. Blood (Blood, Venous) 01/17/2025 3:02 PM CDT 01/17/2025 3:26 PM CDT us Myron Rojas LAB BLOOD ADD-ON Final Result [facility] [address] [place] [address], [place] DTL [facility] [address] [place] [address] * [place] FNA BX WO IMG [address] [place] (01/17/2025 2:00 PM CDT) Narrative Rigoberto Kwok R.N. - 01/17/2025 2:00 PM CDT Rigoberto Kwok R.N. 01/17/2025 2:25 PM Fat Aspirate Performed by: Rigoberto Kwok R.N. Authorized by: Pauline Estrada M.D. Care team members present 1. Rigoberto [...] 1% lidocaine administered SQ Band-aids applied Pamphlet [id number] given to patient us Pauline Estrada M.D. PROCEDURE/MINOR SURGICAL ORDERABLES Final Result * EMG (01/17/2025 11:45 AM CDT) 01/17/2025 12:1 5 PM CDT Narrative [facility] EMG - 01/17/2025 1:41 PM CDT Table formatting from the original result was not included. 17-Jan-2025 Electromyography Final Report Study Number: 1 EMG Claim Clerk: Alaina Head 127 or [phone] Referred by: PAULINE ESTRADA (127 or [phone]) Referred for: PN Referral Code: 200 RX: [...] the interpretation. Fiordaliza Middleton/Sabino Head (127 or [phone])/SMB NERVE CONDUCTIONS Record Rep Normal Normal Distal [...] Electromyography Final Report Study Number: 1 EMG Claim Clerk: Alaina Head 127 or [phone] Referred by: PAULINE ESTRADA (127 or [phone]) Referred for: PN Referral Code: 200 RX: [...] with theinterpretation. Fiordaliza Middleton/Sabino Head (127 or [phone])/SMB NERVE CONDUCTIONS Record Rep Normal Normal Distal [...] Mac M.D. at 01/17/2025 1:41:39 PM CDT Pauline Estrada M.D. NEUROLOGY ORDERABLES Edit ed Result - Final EMG * Subcutaneous Fat Aspirate (01/17/2025 12:00 AM CDT) 01/18/2025 2:23 PM CDT [facility] Report electronically signed by Taryn Castillo M.D. I verify that I have examined all relevant slides/material s for the specimen(s) and rendered or confirmed the diagnosis. 01/18/2025 2:23 PM CDT [facility] Gross Description The subcutaneous fat aspirate used for diagnostic purposes consists of 0.5 mL fat. 01/18/2025 2:23 PM CDT [facility] Interpretation FINAL DIAGNOSIS Congo red stain, abdominal subcutaneous fat aspirate specimen: Amyloid is absent. 01/18/2025 2:23 PM CDT [facility] 01/17/2025 01/17/2025 5:5 9 AM CDT Pauline Estrada M.D. LAB PATHOLOGY/CYTOLOGY OR DERABLES Final Result Performing Organization Address City/[facility]/ZIP Co de Phone Number [facility] [address] [place] [address], [facility] [address] [place] [address] * PET CT Skull to Thigh FDG (12/15/2024 1:15 PM CDT) Anatomical Region Laterality Modality Body, Nuclear Medicine PET R ST LOS, PET ARZ LOS, Nuclear Medicine PET FLA LOS, Nuclear Medicine N/A Positron Emission Tomography (PET), Positron Emission Tomography (PET) Impressions 12/15/2024 1:38 PM CDT 1. No FDG avid osseous lesions. 2. Normal physiologic activity in the bone marrow, liver and spleen. No lymphadenopathy. 3. 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 This is only minimally changed in size dating back to 2020. Dedicated renal mass CT advised if not already performed to more definitively assess. Narrative 12/15/2024 1:38 PM CDT EXAM: PET CT SKULL TO THIGH FDG Serum glucose at time of F-18 FDG injection was 88 mg/dL. Patient followed standard dietary/fasting requirements for this exam. RADIOPHARMACEUTICAL/MEDS: Route: intravenous fludeoxyglucose F 18 injection SHELTER (F-18 FDG),14.96 millicurie TECHNIQUE: F18 FDG PET/CT scan was performed from the vertex through the knees with low dose, non-contrast, free-breathing CT images for attenuation correction and anatomic localization (AC/AL), with imaging beginning at approximately 60 minutes after radiotracer injection. COMPARISON: MRI spine 07/22/2022. INDICATION: Waldenstrom's macroglobulinemia. Assess for FDG avid osseous lesions. Initial treatment strategy. The patient reports no recent vaccinations. FINDINGS: No FDG avid osseous lesions. Scattered areas degenerative activity, most pronounced involving the right knee and right hip. No enlarged or significantly FDG avid lymph nodes throughout. Normal physiologic activity in the bone marrow, liver and spleen. The spleen is of normal dimensions, measuring 102 mm in maximum cc diameter. Solid lesion arising from the left kidney measuring 25 mm and demonstrating an SUV max of 7.2 (image 166). This has only increased minimally in size from [address] 12/18/2020. No FDG avid intracranial lesions. Significant, incidental findings on the low-dose, noncontrast CT: Mild aortic and coronary artery calcifications. Bibasal atelectasis. Nonobstructing calculus in the lower pole of the left kidney. Procedure Note Osmany Kaur M.B., B.Ch., B.A.O. - 12/15/2024 EXAM: PET CT SKULL TO THIGH FDG Serum glucose at time of F-18 FDG injection was 88 mg/dL. Patient followedstandard dietary/fasting requirements for this exam. RADIOPHARMACEUTICAL/MEDS: Route: intravenous fludeoxyglucose F 18 injection SHELTER (F-18 FDG),14.96 millicurie TECHNIQUE: F18 FDG PET/CT scan was performed from the vertex through theknees with low dose, non-contrast, free-breathing CT images forattenuation correction and anatomic localization (AC/AL), with imagingbeginning at approximately 60 minutes after radiotracer injection. COMPARISON: MRI spine 07/22/2022. INDICATION: Waldenstrom's macroglobulinemia. Assess for FDG avid osseouslesions. Initial treatment strategy. The patient reports no recent vaccinations. FINDINGS: No FDG avid osseous lesions. Scattered areas degenerative activity, most pronounced involving the rightknee and right hip. No enlarged or significantly FDG avid lymph nodes throughout. Normal physiologic activity in the bone marrow, liver and spleen. Thespleen is of normal dimensions, measuring 102 mm in maximum cc diameter. Solid lesion arising from the left kidney measuring 25 mm anddemonstrating an SUV max of 7.2 (image 166). This has only increasedminimally in size from [address] 12/18/2020. No FDG avid intracranial lesions. Significant, incidental findings on the low-dose, noncontrast CT: Mild aortic and coronary artery calcifications. Bibasal atelectasis.Nonobstructing calculus in the lower pole of the left kidney. IMPRESSION: 1. No FDG avid osseous lesions. 2. Normal physiologic activity in the bone marrow, liver and spleen. Nolymphadenopathy. 3. Solid renal neoplasm in the upper pole of the left kidney with moderateFDG activity. This is only minimally changed in size dating back to 2020.Dedicated renal mass CT advised if not already performed to moredefinitively assess. us Pauline Estrada M.D. IMG NM PROCEDURES Final R esult * Connective Tissue Diseases [place] (12/15/2024 1:11 PM CDT) Antinuclear Ab, S 0.3 <=1.0 (Negative ) U 12/15/2024 10:09 PM CDT [facility] Comment: ----ADDITIONAL INFORMATION---- Method: Enzyme-linked immunoassay using HEp-2 nuclear extract supplemented with purified antigens. Cyclic Citrullinated Peptide Ab, S <15.6 <20.0 (Negative ) U 12/15/2024 9:19 PM CDT [facility] Comment: Interpretation: Antibodies to CCP not detected. If clinical symptoms are strongly indicative for rheumatoid arthritis, suggest testing for Rheumatoid Factor, S (RHUT) and, if positive, Rheumatoid Factor Panel, S (RFPN), which includes differentiation of rheumatoid factor IgM and IgA isotypes. Interpretation SEE COMMENT 10:09 PM CDT [facility] Comment: Tests for antibodies to dsDNA and ARMANDO antigens are not performed automatically unless the RICHMOND result is > or = 3.0 U. Studies performed at [facility] indicate that positive RICHMOND results <3.0 U are rarely accompanied by positive second order tests. Blood (Blood, Venous) 12/15/2024 1:11 PM CDT 12/15/2024 5:25 PM CDT us Pauline Estrada M.D. LAB BLOOD ADD-ON Final Re sult [facility] [address] [place] [address] [facility] [address] [place] [address] * (ABNORMAL) Comprehensive Metabolic Panel (12/15/2024 1:11 PM CDT) Pathologist [facility] Potassium, S 4.7 3.6 - 5.2 mmol/L 12/15/2024 2:02 PM CDT DTL Sodium, S 135 135 - 145 mmol/L 12/15/2024 2:02 PM CDT DTL Chloride, S 102 98 - 107 mmol/L 12/15/2024 2:02 PM CDT DTL Bicarbonate, S 23 22 - 29 mmol/L 12/15/2024 2:02 PM CDT DTL Anion Gap 10 7 - 15 12/15/2024 2:02 PM CDT DTL BUN (Blood Urea Nitrogen), S 19 8 - 24 mg/dL 12/15/2024 2:02 PM CDT DTL Creatinine 0.99 0.74 - 1.35 mg/dL 12/15/2024 2:02 PM CDT DTL Estimated GFR (eGFR) 75 >=60 mL/min/BS A 12/15/2024 2:02 PM CDT DTL Comment: Estimated GFR calculated using the 2020 CKD_EPI creatinine equation. Calcium, Total, S 9.2 8.8 - 10.2 mg/dL 12/15/2024 2:02 PM CDT DTL Glucose, S 84 70 - 140 mg/dL 12/15/2024 2:02 PM CDT DTL Protein, Total, S 8.2(H) 6.3 - 7.9 g/dL 12/15/2024 2:02 PM CDT DTL Albumin, S 4.5 3.5 - 5.0 g/dL 12/15/2024 2:02 PM CDT DTL Aspartate Aminotransferase (AST), S 21 8 - 48 U/L 12/15/2024 2:02 PM CDT DTL Alkaline Phosphatase, S 64 40 - 129 U/L 12/15/2024 2:02 PM CDT DTL Alanine Aminotransferase (ALT), S 10 7 - 55 U/L 12/15/2024 2:02 PM CDT DTL Bilirubin, Total, S 0.7 0.0 - 1.2 mg/dL 12/15/2024 2:02 PM CDT DTL Blood (Blood, Venous) 12/15/2024 1:11 PM CDT 12/15/2024 1:20 PM CDT Pauline Estrada M.D. LAB BLOOD ADD-ON Final Re sult [facility] [address] [place] [address], [facility] DTL [facility] [address] [place] [address] from Last 3 Months Insurance ARE Advance Directives For more information, please contact: [phone] Documents on File Type Date Recorded Patient Laboratory Geneticist Expl anation Advance Directives 06/09/2017 12:00 AM Leg acy document. See document viewer. Advance Directives 03/28/2014 12:00 AM Lesley tobin document. See document viewer. Care Teams Ornithology Teacher Relationship Specialty Start Date End Date None Reported, Pcp PCP - General 03/19/24
--- OUTSIDE RECORDS SUMMARY | 2025-02-12 12:52 | XMS_ITS | Clinical Summary ---
Author Organization [facility] Address [address] [place] [id number] Care Team Providers Care Taxi Driver Supervisor Name Role Phone Rigoberto Simmons MD Primary Care Provider Allergies No known active allergies Medications latanoprost (XALATAN) 0.005 % ophthalmic solution Place 1 Drop into both eyes once daily in the evening. 2.5 mL 0 05/13/2013 Active timoloL maleate (TIMOPTIC) 0.5 % ophthalmic solution INSTILL 1 DROP IN RIGHT EYE EVERY MORNING 06/13/2020 Active cyanocobalamin (VITAMIN B12) 1,000 mcg tablet Take 1 Tablet (1,000 mcg) by mouth once daily. 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 10/02/2022 Restless leg syndrome 10/02/[address]; reticulon odular changes 12/2020 consider recheck in 1 year 08/23/2021 Diverticulitis of large inte santos without perforation or abscess without bleeding 01/07/2018 Prostate cancer 11/09/2013 Pulmonary nodule 05/13/2013 ACP (advance care planning) 09/07/2012 Overview (09/07/2012): Patient has identified Health Care Agent(s): Yes Add Health Care Agents: Yes Health Care Agent(s): Primary Health Care Agent: Laurel Walsh Relationship: cell Secondary Health Care Agent: Suman Walsh Relationship: son Third agent: Suyapa Theodore Relationship: daughter Fourth agent: Eliezer Walsh Relationship: son Patient has Advance Care Plan Documents (Health Care Directive, POLST): Yes Advance Care Plan Documents: Health Care Directive Patient has identified Specific Treatment Preferences: Yes Specific Treatment Preferences: a.) Code Status: CPR/Attempt Resuscitation b.) Goals of Treatment: Comfort Care. If I reach a point where I can no longer make decisions for myself and it is reasonably certain I will not recover my ability to know who I am, then I want comfort care only. Do not intubate but use medication, oxygen, oral suction, and manual clearing of airways, etc. as needed for immediate comfort. GERD (gastroesophageal reflux disease) 3 MCI (mild cognitive impairment) 08/13/2011 Erectile dysfunction 08/13/2011 Actinic keratosis 08/13/2011 Increased intraocular pressure 08/13/2011 External hemorrhoids without mention of complica tion 08/13/2011 Back pain 02/18/2011 Rosacea 01/29/2011 Subjective tinnitus 04/13/2009 Sensorineural hearing loss, bilateral 04/13/2009 Autonomic neuropathy Overview (01/25/2025): per [facility]. CMML (chronic myelomonocytic leukemia) Resolved Problems Problem Noted Date Diagnosed Date Resolved Date Routine adult health maintenance 04/24/2017 07/31/2020 Overview (04/24/2017): Colonoscopy 04/2017 diverticulosis, no follow up needed Restless legs syndrome 03/14/201408/23 Pancytopenia 11/09/2013 08/23/2021 Anemia 07/13/2012 11/09/2013 Right leg pain 12/09/2011 08/23/2021 Pulmonary nodule 10/17/2011 05/13/2013 Hypertrophy of prostate with out urinary obstruction and other lower urinary tract symptoms (LUTS) 08/13/2011 11/09/2013 Chest pain, unspecified 08/13/2011 06/0 11/2011 Unspecified sinusitis (chronic) 01/29/2011 08/23/2021 Inguinal hernia without ment ion of obstruction or gangrene, unilateral or unspecified, (not specified as recurrent) 01/29/2011 08/23/2021 Encounters Date Type Department Care Team Description 02/04/2025 11:45 AM CDT Office Visit [facility] [address] [place] [address] Rigoberto Simmons MD Preoperative Exam (DOS: 02/16/2025, cataract, [facility], Dr. Ruiz); Lump (Upper right side lip, noticed about a year ago, getting bigger/Left wrist, noticed about 4 months ago) 02/04/2025 Travel 01/05/2025 Orders Only [facility] Scanner 1 scan: (1-Ord) TAREEN DERMATOLOGY, CURETTAGE AND DESTRUCTION, LT POSTERIOR SHOULDER, 01/05/2025 01/04/2025 2:30 PM CDT Ancillary Procedure [facility] [address] [place] [address] 01/04/2025 2:00 PM CDT Ancillary Procedure [facility] [address] [place] [address] 01/04/2025 12:35 PM CDT Office Visit [facility] [address] [place] [address] Nicanor Rivas MD Musculoskeletal Problem (Consultation for Chronic Neck pain) 01/04/2025 Travel 12/29/2024 1:15 PM CDT Office Visit [facility] [address] [place] [address] Rigoberto Simmons MD Lump (Right side groin area, noticed about a year ago); Follow Up (Test results from [facility]) 12/29/2024 Travel 12/14/2024 Orders Only [facility] Scanner 1 scan: (1-Ord) TAREEN DERMATOLOGY, BIOPSIES; SHAVE METHOD - MULTIPLE SITES , 12/14/2024 12/08/2024 3:20 PM CDT Office Visit [address] [place] [address] Rigoberto Simmons MD Medicare ANNUAL (subsequent) Visit (84 year old); Lab (PSA test/hemoglobin); Follow Up (Discuss [facility] visits); Concerns (Left breast pain, started about 7 months ago); Lump (Upper lip); Referral (Sports medicine for right thumb injection); Shoulder Pain/problem (Bilateral shoulder and neck pain); Weight (Discuss weight loss) 12/08/2024 Travel 12/03/2024 Travel from Last 3 Months Immunizations Immunization Administration Dates Next Due AMB Influenza, IIV3 (Age >=3 years)(Flu Clinic Only) 03/12/2012,04/05/2008 COVID-19 VACCINE SPIKEVAX (M ODERNA 50MCG/0.5ML) 12YO+ PFS 02/26/2023 COVID-19 vaccine (Pfizer-Bio NTech 30mcg/0.3mL) 12YO+ BIVALENT PF, MDV 10/02/2022 COVID-19 vaccine (Pfizer-Bio NTech 30mcg/0.3mL) 12YO+ OXANA-SUCROSE PF, MDV 08/23/2021 COVID-19 vaccine (Pfizer-Bio NTech 30mcg/0.3mL) PF, MDV 01/30/2021,07/14/2020,06/23/2020 DT (Age < 7 years) 09/22/2006 Influenza Virus, Unspecified 02/20/2009 Influenza, High-dose Inactivated 019,05/13/2016,03/06/2015,02/28 Influenza, High-dose Quadriv alent Inactivated 01/17/2022,02/28/2021 Influenza, IIV3 (Age >=3 years) 01/30/20 11,03/09/2007,04/25/2006,04/25 Influenza, IIV4 (=>6mos) MDV 04/09/2024 Influenza, Inactivated AIIV4 (Age 65+ Years) Preserv Free 02/26/2023,02/18/2020 Influenza, Inactivated IIV3 (Age 65+ Years) Preserv Free 02/12/2018,03/20/2017,03/12/2012,04/05 Pneumococcal Conj 20-valent (Prevnar 20) 05/23/2022 Pneumococcal Poly,23-Valent (Pneumovax) 09/22/2006 Pneumococcal conj 13-Valent (Prevnar 13) 03/14/2014 RSV, Recombinant ADJ Reconst ituted (Arexvy 120MCG/0.5mL) 07/29/2023 Td, Preservative Free (age >= 7 Years) 2,09/22/2006 Tdap 05/24/2022 Zoster (Shingrix-RZV, recombinant) 11/09/2020, Zoster (Zostavax-ZVL, live) 12/13/2011 Family History Medical History Relation Name Comments Heart attack Father D54 Rheum arthritis Mother Stroke Mother d75 Anesthesia Problem No Family History Cancer-colon No Family History Diabetes No Family History Relation Name Status Comments Father Mother Social History Tobacco Use Types Packs/Day Years Used Date Smoking Tobacco: Former Cigarettes 1 20 0 05/12/1963 - 05/12/1983 Smokeless Tobacco: Never Tobacco Cessation:Counseling Given: No Comments:quit smoking around 05-12-1983 Alcohol Use Standard Drinks/Week Comments Yes 0 (1 standard drink = 0.6 oz pur e alcohol) 1-2 beers daily PHQ-2 Answer Date Recorded PHQ-2 TOTAL SCORE 0 12/08/2024 Social Connections Answer Date Recorded Do you often feel lonely or isolated from those around you? 0 08/19/2024 Alcohol Use Answer Date Recorded How often do you have a drink containing alcohol ? 4 02/04/2025 How many drinks containing a lcohol do you have on a typical day when you are drinking? 0 02/04/2025 How often do you have five or more drinks on one occasion? 0 02/04/2025 Financial Resource Strain Answer Date R ecorded Difficulty of Paying Living Expenses 3 08/19/2024 Difficulty of Paying Living Expenses Not on file 08/19/2024 Food Insecurity Answer Date Recorded Do you worry your food will run out before you are able to buy more? 1 08/19/2024 Transportation Needs Answer Date Record ed Does lack of transportation keep you from medica l appointments? 1 08/19/2024 Does lack of transportation keep you from work, meetings or getting things that you need? 1 08/19/2024 Housing Stability Answer Date Recorded What is your housing situation today? 1 08/19/2024 Utilities Answer Date Recorded Do you have trouble paying f or utilities (for example, heat, electricity, water, phone)? 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 Gender Identity Not on file Sexual Orientation Not on file Occupation Industry Job Start Date Job End Date Retired Not on file Not on file Not on file Travel History Travel Start Travel End [place] 01/28/2025 01/30/2025 Obstetrics History Last Filed Vital Signs Vital Sign Reading Time Taken Comments Blood Pressure 161/77 02/04/2025 11:51 AM CDT Pulse 54 02/04/2025 11:51 AM CDT Temperature 36.4 C (97.5 F) 09/07/2024 8:28 AM CDT Respiratory Rate 18 10/24/2020 2:38 PM CDT Oxygen Saturation 99% 02/04/2025 11:51 AM CDT Inhaled Oxygen Concentration - - Weight 69.4 kg (153 lb) 02/04/2025 11:51 AM CDT Height 175.6 cm (5' 9.13) 02/04/2025 11:51 AM C DT Body Mass Index 22.51 02/04/2025 11:51 AM CDT Plan of Treatment Health Maintenance Due Date Last Done Comments Influenza Vaccine (#1) 2025 , 02/26/2023, 02/18/2020, Additional history exists COVID-19 vaccine series (10 - Pfizer risk season) 2025 01/13/2025, 07/29/2023, 02/26/2023, Additional history exists Depression screening for age 12+ 12/08/2025 12/08/2024, 05/15/2023, 05/14/2023, Additional history exists Medicare Wellness for age 65+ 12/09/2025 12/08/2024, 05/14/2023, 08/23/2021, Additional history exists BMI (ht and wt on same day) for age 18+ 02/04/2026 02/04/2025, 12/08/2024, 05/14/2023, Additional history exists Tetanus booster 05/24/2032 05/24/2022, 04/0 07/2011, 08/13/2011, Additional history exists Zoster (shingles) series for age 50+ Completed 11/09/2020, 08/15/2020, 12/13/2011 Pneumococcal series for age 50+ Completed 05/23/2022, 03/14/2014, 09/22/2006 RSV vaccine for adults or Completed 07/29/2023 Hepatitis B series for 19+ Aged Out N o longer eligible based on patient's age to complete this topic Procedures Procedure Name Priority Date/Time Associated Diagnosis Comments SCAN-OPERATIVE/PROC EDURE REPORT 01/05/2025 12:00 AM CDT XR WRIST 3 VIEWS LEFT Routine 01/04/2025 2:10 PM CDT Bilateral thumb pain XR WRIST 3 VIEWS RIGHT Routine 01/04/2025 2:09 PM CDT Bilateral thumb pain SCAN-OPERATIVE/PROC EDURE REPORT 12/14/2024 12:00 AM CDT PSA TOTAL Routine 12/08/2024 4:50 PM CDT Prostate cancer (HC) LIPID PANEL W REFLEX MEASURED LDL Routine 12/08/2024 4:50 PM CDT Dyslipidemia TSH WITH REFLEX Routine 12/08/2024 4:50 PM CDT Weight loss from Last 3 Months Results * SCAN-OPERATIVE/PROCEDURE REPORT (01/05/2025 12:00 AM CDT) us Scanner OTHER Final Result * XR WRIST 3 OR MORE VIEWS LEFT (01/04/2025 2:10 PM CDT) Anatomical Region Laterality Modality WRISTS, WRIST L Computed Radiogr aphy 01/05/2025 11:0 2 AM CDT Narrative 01/05/2025 11:02 AM CDT For Patients: As a result of the Cures Act, medical imaging exams and procedure reports are released immediately into your electronic medical record. You may view this report before your referring provider. If you have questions, please contact your health care provider. Indication: Thumb pain Technique: Three views left wrist Comparison: None Findings: Mild narrowing and spurring at the 1st carpometacarpal joint and triscaphe joint. No fracture. Carpal alignment normal. Decreased bone density. 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 Dictated by Sabas Lewis MD @ 01/05/2025 11:02:31 AM (Electronically Signed) Procedure Note Sabas Lewis MD - 01/05/2025 For Patients: As a result of the s Act, medical imagingexams and procedure reports are released immediately into your electronicmedical record. You may view this report before your referring provider.If you have questions, please contact your health care provider. Indication: Thumb pain Technique: Three views left wrist Comparison: None Findings: Mild narrowing and spurring at the 1st carpometacarpal joint and triscaphejoint. No fracture. Carpal alignment normal. Decreased bone density. 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 Dictated by Sabas Lewis MD @ 01/05/2025 11:02:31 AM (Electronically Signed) Nicanor Rivas MD GENERAL IMAGING Final Res ult * XR WRIST 3 OR MORE VIEWS RIGHT (01/04/2025 2:09 PM CDT) Anatomical Region Laterality Modality WRISTS, WRIST R Computed Radiogr aphy 01/05/2025 11:0 1 AM CDT Narrative 01/05/2025 11:01 AM CDT For Patients: As a result of the s Act, medical imaging exams and procedure reports are released immediately into your electronic medical record. You may view this report before your referring provider. If you have questions, please contact your health care provider. Indication: Thumb pain Technique: Three views right wrist Comparison: None Findings: Narrowing and spurring at the 1st carpometacarpal joint. Milder spurring at the triscaphe joint. No erosions. No fracture. Carpal alignment normal. 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 Dictated by Sabas Lewis MD @ 01/05/2025 11:01:33 AM (Electronically Signed) Procedure Note Sabas Lewis MD - 01/05/2025 For Patients: As a result of the Cures Act, medical imagingexams and procedure reports are released immediately into your electronicmedical record. You may view this report before your referring provider.If you have questions, please contact your health care provider. Indication: Thumb pain Technique: Three views right wrist Comparison: None Findings: Narrowing and spurring at the 1st carpometacarpal joint. Milder spurringat the triscaphe joint. No erosions. No fracture. Carpal alignment normal. 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 Dictated by Sabas Lewis MD @ 01/05/2025 11:01:33 AM (Electronically Signed) us Nicanor Rivas MD GENERAL IMAGING Final Res ult * SCAN-OPERATIVE/PROCEDURE REPORT (12/14/2024 12:00 AM CDT) us Scanner OTHER Final Result * TSH WITH REFLEX (12/08/2024 4:50 PM CDT) TSH W/REFLEX TO FT4 1.82 0.40 - 4.50 mIU/L [facility] Blood BLOOD SPECIMEN / Unknown 12/08/2024 4:50 PM CDT 12/08/2024 4:50 PM CDT us Rigoberto Simmons MD CHEMISTRY Final Result [facility] [address] [place] [address], [place] [phone] [facility] [address] [place] [address] * LIPID PANEL W REFLEX MEASURED LDL (12/08/2024 4:50 PM CDT) CHOLESTEROL, TOTAL 141 <200 mg/dL [facility] HDL CHOLESTEROL 45 > OR = 40 mg/dL [facility]ane TRIGLYCERIDES 70 <150 mg/dL [facility] LDL-CHOLESTEROL 81 mg/dL (calc) [facility] Comment: Reference range: <100 Desirable range <100 mg/dL for primary prevention; <70 mg/dL for patients with CHD or diabetic patients with > or = 2 CHD risk factors. LDL-C is now calculated using the Marva calculation, which is a validated novel method providing better accuracy than the Friedewald equation in the estimation of LDL-C. Edward SS et al. YFN. 2013;310(19): 6766-8036 (http://education.Bell Boardz/faq/ZVQ079) CHOL/HDLC RATIO 3.1 <5.0 (calc) [facility] NON HDL CHOLESTEROL 96 <130 mg/dL (calc) [facility] Comment: For patients with diabetes plus 1 major ASCVD risk factor, treating to a non-HDL-C goal of <100 mg/dL (LDL-C of <70 mg/dL) is considered a therapeutic option. Blood BLOOD SPECIMEN / Unknown 12/08/2024 4:50 PM CDT 12/08/2024 4:50 PM CDT Rigoberto Simmons MD CHEMISTRY Final Result [facility] [address] [place] [address], [facility] [address] [place] [address] * PSA TOTAL (12/08/2024 4:50 PM CDT) Pathologist [facility] PSA, TOTAL 0.48 < OR = 4.00 ng/mL [employer] [facility] [employer] Comment: The total PSA value from this assay system is standardized against the WHO standard. The test result will be approximately 20% lower when compared to the equimolar-standardized total PSA (Rebeca [place]). Comparison of serial PSA results should be interpreted with this fact in mind. This test was performed using the Siemens chemiluminescent method. Values obtained from different assay methods cannot be used interchangeably. PSA levels, regardless of value, should not be interpreted as absolute evidence of the presence or absence of disease. Blood BLOOD SPECIMEN / Unknown 12/08/2024 4:50 PM CDT 12/08/2024 4:50 PM CDT Rigoberto Simmons MD CHEMISTRY Final Result [facility] [address] [place] [address], [facility] [address] [place] [address] from Last 3 Months Insurance [place] BLUE HB ONLY MEDICARE PART B HB ONLY MEDICARE PART A HB ONLY UCARE MEDICARE ADVANTAGE MR Advance Directives Documents on File Type Date Recorded Patient Associate Veterinarian Expl anation Power of Mechanic Field Service 06/16/2017 2:37 PM MEDICA L POWER OF ANESTHESIOLOGY TEACHER, [facility], 06/05/17 Healthcare Directive 09/22/2012 12:31 PM H EALTHCARE DIRECTIVE 03/03/12 Care Teams Taxi Driver Supervisor Relationship Specialty Start Date End Date Rigoberto Simmons MD [address] [place] [address] PCP - General Family Practice 03/20/17
--- OUTSIDE RECORDS SUMMARY | 2025-02-12 12:52 | XMS_ITS | Clinical Summary ---
Author Organization [facility] Address [address] [facility] , [address] [place] [address] Phone Care Team Providers Care Mortgage Sales Manager Name Role Phone Octavia Pond Unavailable Unavailable Conditions or Problems Problem Name Problem Code Onset Date Status Entry Date Provider Comment Standard Description Annotate Leg weakness, bilateral 693229855 (SNOMED CT) Active 07/31 Sera Clark MD Paresis of lower extremity Restless leg syndrome ( with PLMS 94/hr) G25.81 (ICD-10-CM) Active Patrice Arroyo Jr, MD Restless legs syndrome Obstructive sleep apnea (mild/mod; AHI 6.3; RDI 18.6; tang 83%; obstructions supine rel) 41165121 (SNOMED CT) Active 07/22 Patrice Arroyo Jr, MD Obstructive sleep apnea syndrome Snoring 95035092 (SNOMED CT) Active 06/06 Patrice Arroyo Jr, MD Snoring Insomnia 328795032 (SNOMED CT) Active 06/06 Patrice Arroyo Jr, MD Insomnia Periodic limb movement disorder 416865934 (SNOMED CT) Resolved Patrice Arroyo Jr, MD Periodic limb movement disorder Leg cramps, bilateral 332326239 (SNOMED CT) Active Sera Clark MD Cramp in lower limb Periodic limb movement disorder 866920591 (SNOMED CT) Removed Sera Clark MD Periodic limb movement disorder Restless leg syndrome 93186379 (SNOMED CT) Inactive Sera Clark MD Restless legs syndrome Orthostatic dizziness 316945687 (SNOMED CT) Active Sera Clark MD Postural dizziness Spells 94866468 ([facility] CT) Active Sera Clark MD Stupor Medications Medication Instructions Start Date Stop Date Generic Name NDC Provider ZALEPLON 5 MG CAPS Take 1-2 capsule by mouth every night at bedtime as directed as needed for insomnia on the sleep study; do not dose if <3 hrs of sleep time remain zaleplon [id number] Alejandra Gerardo PA-C LYRICA 25 MG CAPS Take 1 capsule by mouth 1 hour before bedtime. May increase dose by 1 cap per week up to a dose of 100 mg (4 caps) an hour before bedtime pregabalin 25683364469 Alejandra Gerardo PA-C ROPINIROLE HCL 0.5 MG TABS Take 3 tablet by mouth every night as directed #1 at 6pm and #2 at 9pm ropinirole 44359970157 Patrice Arroyo Jr, MD ZALEPLON 5 MG CAPS Take 1-2 capsule by mouth every night at bedtime as directed as needed for insomnia on the sleep study; do not dose if <3 hrs of sleep time remain zaleplon 14668699427 Patrice Arroyo Jr, MD ROPINIROLE HCL 1 MG TABS Take 1 tablet by mouth every night ropinirole 97035131461 Patrice Arroyo Jr, MD ROPINIROLE HCL 0.5 MG TABS Take 3 tablet by mouth every night as directed #1 at 6pm and #2 at 9pm ropinirole 93333549754 Patrice Arroyo Jr, MD IRON 325 (65 Fe) MG TABS ferrous sulfate 38851785935 Patrice Arroyo Jr, MD LATANOPROST 0.005 % SOLN latanoprost [id number] Patrice Arroyo Jr, MD ROPINIROLE HCL 1 MG TABS Take 1 tablet by mouth every night ropinirole 64478343855 Sera Clark MD NEURONTIN 600 MG TABS Take 1/2 tablet by mouth once a day at 12:00noon, and 1 full tab at 8:00pm gabapentin [id number] Kim Kate HARRISON NEURONTIN 600 MG TABS Take 1/2 tablet by mouth once a day at 12:00noon, and 1 full tab at 8:00pm gabapentin [id number] Kim Kate RN NEURONTIN 600 MG TABS Take 1 1/2 tablet by mouth once a day at 8:00pm gabapentin [id number] Kim Alfredofrankie RN NEURONTIN 600 MG TABS TAKE ONE TABLET BY MOUTH AT 8 pm. gabapentin [id number] Sera Clark MD Medications Administered No information available. Allergies, Adverse Reactions, Alerts Allergy Name Reaction Description Start Date Severity Statu s Provider raj De León Severe Active Ambrose Arroyo Jr, MD GABAPENTIN inc twitching Moderate Active Patrice Arroyo Jr, MD Results Date Name Value Unit Range Flag Description Replaced Document: (P) COMPR EHENSIVE METABOLIC PANEL, CBC (INCLUDES DIFF/PLT), ... TSH * u[iU]/mL Thyrotropin [Units/volume] in Serum or Plasma T4, FREE * ng/dL Thyroxine (T 4) free [Mass/volume] in Serum or Plasma T4, TOTAL * ug/dL Thyroxine ( T4) [Mass/volume] in Serum or Plasma FERRITIN * ng/mL Ferritin [Mass/volume] in Serum or Plasma BASOPHIL % 0.4 % N Basophils/ 100 leukocytes in Blood by Manual count EOSINOPHIL % 2.3 % N Eosinoph ils/100 leukocytes in Blood by Manual count MONOCYTE % 15.8 % N Monocytes/ 100 leukocytes in Blood by Automated count LYMPHS % 38.3 % N Lymphocytes/ 100 leukocytes in Blood by Automated count PMN % 43.2 % N Neutrophils/1 00 leukocytes in Blood by Automated count BASOPH COUNT 21 CELLS/UL 10*3/mm3 0-200 N Bas ophils [#/volume] in Blood by Manual count EOS COUNT 122 CELLS/UL 10*3/mm3 15-500 N eosinophil count , blood MONOSCT AUTO 837 CELLS/UL 10*3/uL 200-950 N Monocytes [#/vol ume] in Blood by Automated count LYMPH COUNT 2030 CELLS/UL 10*3/mm3 850-3900 N lymphocyte count , blood NEUTRO COUNT 2290 CELLS/UL 10*3/mm3 7593-1009 N neutrophil count , blood MPV 10.1 fL 7.5-12.5 N Platelet daily n volume [Entitic volume] in Blood by Adriano PLATELETS 206 THOUSAND/UL 10*3/mm3 140-400 N Platelets [#/vol ume] in Blood by Automated count RDW 13.1 % 11.0-15.0 N Erythrocyte distribution width [Ratio] by Automated count MCHC 33.6 G/DL 32.0-36.0 N MCHC [Mass/ volume] by Automated count MCH 32.9 pg 27.0-33.0 N MCH [Entiti c mass] by Automated count MCV 97.9 fL 80.0-100. 0 N MCV [Entitic volume] by Automated count HCT 27.7 % 38.5-50.0 L Hematocrit [Volume Fraction] of Blood by Automated count HGB 9.3 g/dL 13.2-17.1 L Hemoglobin [Mass/volume] in Blood RBC 2.83 MILLION/UL 10*6/mm3 4.20-5.80 L Erythrocytes [#/volume] in Blood by Automated count WBC 5.3 THOUSAND/UL 10*3/mm3 3.8-10.8 N Leukocytes [#/volume] in Blood by Automated count SGPT (ALT) * U/L Alanine aminotransferase [Enzymatic activity/volume] in Serum or Plasma SGOT (AST) * U/L Aspartate aminotransferase [Enzymatic activity/volume] in Serum or Plasma ALK PHOS * U/L Alkaline devon sphatase [Enzymatic activity/volume] in Blood BILI TOTAL * mg/dL Bilirubin. total [Mass/volume] in Serum or Plasma A/G RATIO * Albumin/Haven bulin [Mass Ratio] in Serum or Plasma GLOBULIN TOT * g/dL Globulin [Mass/volume] in Serum ALBUMIN * g/dL Albumin [Mass/volume] in Serum or Plasma PROTEIN, TOT * g/dL Protein [Mass/volume] in Serum or Plasma CA * mg/dL Calcium [Mass/volume] in Serum or Plasma CO2 TOTAL * mmol/L carbon diox nabeel, serum, total CHLORIDE * mmol/L Chloride [Moles/volume] in Serum or Plasma POTASSIUM * mmol/L Potassium [Moles/volume] in Serum or Plasma SODIUM * mmol/L Sodium [Moles/volume] in Serum or Plasma BUN/CREAT * Urea nitrogen/Creatinine [Mass Ratio] in Serum or Plasma [id number] * GE use only - for LinkLogic import when terms are not otherwise specified CREATININE * mg/dL Creatinine [Mass/volume] in Serum or Plasma BUN * mg/dL Urea nitrogen [Mass/volume] in Serum or Plasma GLUCOSE SER * mg/dL Glucose [Mass/volume] in Serum or Plasma Office Visit: NSLE SMOK STATUS former smoker Tobacco smoking status Telemedicine: BRUNILDA FTEL FSLE; PSG review; SHANNAN whitehead; Venusa trial fax MEDS REVIEW Done Documenta tion of current medications (procedure) Plan of Care Type Date Detail Pending order Follow up Sleep BRUNILDA telemedicine Pending order Follow up Pending order Follow up Sleep BRUNILDA telemedicine Pending Order exclud ed from report: Pending order Follow up Pending Order exclud ed from report: Pending order Follow up Pending order Follow up Sleep BRUNILDA telemedicine Pending order Cardiology Refer ral Pending order Other Referral Pending order Cardiology Refer ral Pending order Other Referral Pending order Follow up Pending order CPAP Order Pending order Patient Instruct ions Pending order Follow up teleme dicine Pending order Dental Device Pending order Overnight PSG - Sleep Study Overnight Pending order Follow up Pending order Sleep NEW Consul t w/ Sleep Physician Pending order Sleep Apnea Hand out Pending order Restless Legs Sy ndrome Handout Pending order Patient Instruct ions Pending order MRI-Thoracic W/O Pending order MRI-Brain W/ Pending order CTA-Head W/ Pending order CTA-Neck W/ Pending order MRI-Brain W/O Pending order MRI-Cervical W/O Pending order MRA-Head W/O Pending order MRA-Neck W/WO Pending order EEG (40min) Pending order CBC with Diff/Pl atelet Pending order Comp Metabolic P guero (14) Pending order Ferritin Serum Pending order T4 Pending order TSH Procedures Code Procedure Name Date Entry Date ORDERS Follow up Sleep BRUNILDA telemedicine ORDERS Follow up ORDERS Follow up [id number] Cardiology Referral SCT-[id number] Other Referral ORDERS CPAP Order ORDERS Dental Device ORDERS Patient Instructions ORDERS Follow up telemedicine 06/06 CPT-76654 PSG, 4+ parameters w / tech - 6yrs or older (62581) ORDERS Overnight PSG - Sleep Study Overnight 202 08/13/11 ORDERS Sleep Apnea Handout ORDERS Restless Legs Syndrome Handout ORDERS Patient Instructions ORDERS Sleep NEW Consult w/ Sleep Physician 2023 [id number] MRI-Thoracic W/O CPT-71163 MRI Thoracic W/O [id number] MRI-Brain W/ CPT-I3596M ProHance Gadolinium- based MR Contrast - 15 ml vial CPT-58971 MRI Brain W/ CPT-O5376R ProHance Gadolinium- based MR Contrast - 15 ml vial ORDERS CTA-Neck W/ ORDERS CTA-Head W/ CPT-04776 MRI Brain W/O CPT-04175 MRI Cervical W/O CPT-57240 MRA Head W/O CPT-Y6882G MultiHance Gadoliniu m-based MR Contrast - 15 ml vial CPT-64395 MRA Neck W/WO [id number] MRI-Brain W/O [id number] MRI-Cervical W/O [id number] MRA-Head W/O [id number] MRA-Neck W/WO ORDERS EEG (40min) CPT-99755 EEG (AWAKE/DROWSY) (END) 202 07/21/19 ORDERS CBC with Diff/Platelet 03/04 ORDERS Ferritin Serum ORDERS TSH ORDERS Comp Metabolic Panel (14) 03/03/24 ORDERS T4 Vital Signs Date Name Value Unit Description Height 70.5 [in_us] height E&M BMI (Body Mass Index) 22.01 kg/m2 Bod y Mass Index (Ratio) Respiratory Rate 16 /min respirat ory rate E&M Weight Measured 155 [lb_av] weight E& M Weight Measured 155 [lb_av] weight E& M Weight Measured 70.45 kg weight in kilograms E&M Immunizations No information available. Advance Directives No information available.
--- OUTSIDE RECORDS SUMMARY | 2025-02-12 12:52 | XMS_ITS | Encounter Summary ---
Author Organization [facility] Address [address] [place] [address] Care Team Providers Care Spectral Scientist Name Role Phone None Reported, Pcp Primary Care Provider Unavail able Encounter Details Date Type Department Care Team (Late st Contact Info) Description 01/25/2025 Orders Only Division of Hematology in [place], [place] [address] [place] [address] Myron Burrows M.B.B.S. 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 Gender Identity Male 08/19/2023 4:29 PM CDT Sexual Orientation Straight 08/19/2023 4: 29 PM CDT documented as of this encounter Plan of Treatment Upcoming Encounters Date Type Department Care Team (Late st Contact Info) Description 02/24/2025 10:00 AM CDT Clinical Support - [facility] Division of Hematology in [place], [place] [address] [place] [address] documented as of this encounter Visit Diagnoses Not on filedocumented in this encounter Additional Health Concerns Assessment Noted Time PHQ-9 Depression Total Score: 0 02/15/20 14 1:30 PM CDT documented as of this encounter Care Teams Spectral Scientist Relationship Specialty Start Date End Date None Reported, Pcp PCP - General 03/19/24 documented as of this encounter
--- OUTSIDE RECORDS SUMMARY | 2025-02-12 12:52 | XMS_ITS | Encounter Summary ---
Author Organization [facility] Address [address] [place] [address] Care Team Providers Care Business Intelligence Analyst Name Role Phone None Reported, Pcp Primary Care Provider Unavail able Encounter Details Date Type Department Care Team ([facility] st Contact Info) Description 01/24/2025 Results Follow-Up Division of Hematology in [place], [place] [address] [place] [phone] Marixa Shaikh M.D. 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 Gender Identity Male 08/19/2023 4:29 PM CDT Sexual Orientation Straight 08/19/2023 4: 29 PM CDT documented as of this encounter Plan of Treatment Upcoming Encounters Date Type Department Care Team (Late st Contact Info) Description 02/24/2025 10:00 AM CDT Clinical Support - [facility] Division of Hematology in [place], [place] [address] [place] [address] documented as of this encounter Visit Diagnoses Not on filedocumented in this encounter Additional Health Concerns Assessment Noted Time PHQ-9 Depression Total Score: 0 02/15/20 14 1:30 PM CDT documented as of this encounter Care Teams Business Intelligence Analyst Relationship Specialty Start Date End Date None Reported, Pcp PCP - General 03/19/24 documented as of this encounter
--- OUTSIDE RECORDS SUMMARY | 2025-02-12 12:52 | XMS_ITS | Encounter Summary ---
Author Organization [facility] Address [address] [place] [address] Care Team Providers Care Extrusion Die Coordinator Name Role Phone None Reported, Pcp Primary Care Provider Unavail able Encounter Details Date Type Department Care Team (Late st Contact Info) Description 01/25/2025 Orders Only Division of Hematology in [place], [place] [address] [place] [address] Myron Burrows M.B.B.S. 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 Gender Identity Male 08/19/2023 4:29 PM CDT Sexual Orientation Straight 08/19/2023 4: 29 PM CDT documented as of this encounter Plan of Treatment Upcoming Encounters Date Type Department Care Team (Late st Contact Info) Description 02/24/2025 10:00 AM CDT Clinical Support - [facility] Division of Hematology in [place], [place] [address] [place] [address] Scheduled Orders Name Type Priority Associated Diagnoses Orde r Schedule Vitamin B12 Assay Lab Routine Anemia B12 Deficiency Expected: 04/26/2025, Expires: 04/26/2026 Methylmalonic Acid (MMA), Quantitative Lab Routine Anemia B12 Deficiency Expected: 04/26/2025, Expires: 04/26/2026 documented as of this encounter Visit Diagnoses Diagnosis Anemia B12 Deficiency- Primary documented in this encounter Additional Health Concerns Assessment Noted Time PHQ-9 Depression Total Score: 0 02/15/20 14 1:30 PM CDT documented as of this encounter Care Teams Extrusion Die Coordinator Relationship Specialty Start Date End Date None Reported, Pcp PCP - General 03/19/24 documented as of this encounter
[2025-02-12 12:57] VITALS: BP 130/67; PULSE 55; RESP 16; TEMP 37.1; O2SAT 98; BMI 20.8
--- OUTSIDE RECORDS SUMMARY | 2025-02-12 13:33 | XMS_ITS | Clinical Summary ---
Author Organization [facility] Address [address] [facility] , [address] [place] [address] Phone Care Team Providers Care Interpersonal Communications Professor Name Role Phone Octavia Pond Unavailable Unavailable Conditions or Problems Problem Name Problem Code Onset Date Status Entry Date Provider Comment Standard Description Annotate Leg weakness, bilateral 680108549 (SNOMED CT) Active 07/31 Sera Clark MD Paresis of lower extremity Restless leg syndrome ( with PLMS 94/hr) G25.81 (ICD-10-CM) Active Patrice Arroyo Jr, MD Restless legs syndrome Obstructive sleep apnea (mild/mod; AHI 6.3; RDI 18.6; tang 83%; obstructions supine rel) 22146782 (SNOMED CT) Active 07/22 Patrice Arroyo Jr, MD Obstructive sleep apnea syndrome Snoring 49623917 (SNOMED CT) Active 06/06 Patrice Arroyo Jr, MD Snoring Insomnia 105981016 (SNOMED CT) Active 06/06 Patrice Arroyo Jr, MD Insomnia Periodic limb movement disorder 981862667 (SNOMED CT) Resolved Patrice Arroyo Jr, MD Periodic limb movement disorder Leg cramps, bilateral 215015046 (SNOMED CT) Active Sera Clark MD Cramp in lower limb Periodic limb movement disorder 714696197 (SNOMED CT) Removed Sera Clark MD Periodic limb movement disorder Restless leg syndrome 02325307 (SNOMED CT) Inactive Sera Clark MD Restless legs syndrome Orthostatic dizziness 950260385 (SNOMED CT) Active Sera Clark MD Postural dizziness Spells 56062674 ([facility] CT) Active Sera Clark MD Stupor Medications Medication Instructions Start Date Stop Date Generic Name NDC Provider ZALEPLON 5 MG CAPS Take 1-2 capsule by mouth every night at bedtime as directed as needed for insomnia on the sleep study; do not dose if <3 hrs of sleep time remain zaleplon [id number] Alejandra Gerardo PA-C LYRICA 25 MG CAPS Take 1 capsule by mouth 1 hour before bedtime. May increase dose by 1 cap per week up to a dose of 100 mg (4 caps) an hour before bedtime pregabalin [id number] Alejandra Gerardo PA-C ROPINIROLE HCL 0.5 MG TABS Take 3 tablet by mouth every night as directed #1 at 6pm and #2 at 9pm ropinirole 45860107873 Patrice Arroyo Jr, MD ZALEPLON 5 MG CAPS Take 1-2 capsule by mouth every night at bedtime as directed as needed for insomnia on the sleep study; do not dose if <3 hrs of sleep time remain zaleplon 54827101661 Patrice Arroyo Jr, MD ROPINIROLE HCL 1 MG TABS Take 1 tablet by mouth every night ropinirole 79232313751 Patrice Arroyo Jr, MD ROPINIROLE HCL 0.5 MG TABS Take 3 tablet by mouth every night as directed #1 at 6pm and #2 at 9pm ropinirole 86449853906 Patrice Arroyo Jr, MD IRON 325 (65 Fe) MG TABS ferrous sulfate 24023229922 Patrice Arroyo Jr, MD LATANOPROST 0.005 % SOLN latanoprost 80805095963 Patrice Arroyo Jr, MD ROPINIROLE HCL 1 MG TABS Take 1 tablet by mouth every night ropinirole 42053880628 Sera Clark MD NEURONTIN 600 MG TABS Take 1/2 tablet by mouth once a day at 12:00noon, and 1 full tab at 8:00pm gabapentin [id number] Kim Kate HARRISON NEURONTIN 600 MG TABS Take 1/2 tablet by mouth once a day at 12:00noon, and 1 full tab at 8:00pm gabapentin 41607322209 Kim Kate RN NEURONTIN 600 MG TABS Take 1 1/2 tablet by mouth once a day at 8:00pm gabapentin 33718355001 Kim Alfredofrankie RN NEURONTIN 600 MG TABS TAKE ONE TABLET BY MOUTH AT 8 pm. gabapentin 56540306972 Sera Clark MD Medications Administered No information [...] , blood NEUTRO COUNT 2290 CELLS/UL 10*3/mm3 3935-4380 N neutrophil count , blood MPV 10.1 [...] nitrogen/Creatinine [Mass Ratio] in Serum or Plasma [id number] * GE use only - for [employer]Logic [...] telemedicine ORDERS Follow up ORDERS Follow up [id number] Cardiology Referral SCT-[id number] Other Referral ORDERS CPAP Order ORDERS Dental Device ORDERS Patient Instructions ORDERS Follow up telemedicine 06/06 CPT-23350 PSG, 4+ parameters w / tech - 6yrs or older (39849) ORDERS Overnight PSG - Sleep Study Overnight 202 08/13/11 ORDERS Sleep Apnea Handout ORDERS Restless Legs Syndrome Handout ORDERS Patient Instructions ORDERS Sleep NEW Consult w/ Sleep Physician 2023 [id number] MRI-Thoracic W/O CPT-26073 MRI Thoracic W/O [id number] MRI-Brain W/ CPT-K7703P ProHance Gadolinium- based MR Contrast - 15 ml vial CPT-70391 MRI Brain W/ CPT-R2598B ProHance Gadolinium- based MR Contrast - 15 ml vial ORDERS CTA-Neck W/ ORDERS CTA-Head W/ CPT-15882 MRI Brain W/O CPT-36728 MRI Cervical W/O CPT-36765 MRA Head W/O CPT-P3296S MultiHance Gadoliniu m-based MR Contrast - 15 ml vial CPT-25673 MRA Neck W/WO [id number] MRI-Brain W/O [id number] MRI-Cervical W/O [id number] MRA-Head W/O [id number] MRA-Neck W/WO ORDERS EEG (40min) CPT-51078 EEG (AWAKE/DROWSY) (END) 202 07/21/19 ORDERS CBC [...]
[2025-02-12] MEDS: CYCLOBENZAPRINE HCL 10 MG TABLET 5 MG PO (13:38)
[2025-02-12] MEDS: TRAMADOL HCL 50 MG TABLET 100 MG PO (13:38)
--- NOTE | 2025-02-12 15:04 | ED.GENADULT ---
HPI - General Adult General Chief complaint: Neck Injury/Pain Stated complaint: Pain on left side of back Time Seen by Provider: 02/12/25 12:50 History of Present Illness HPI narrative: Friendly 84-year-old male presents with his spouse for evaluation of pain in the left neck area. Specifically in the levator/trapezius area. It radiates slightly towards the left shoulder but there is no real radiculopathy. No weakness in the arm. There has been no new trauma or injury. He started to notice that things were flaring up about 5-6 days ago and he had a massage appointment on Friday which is 5 days prior. He did have some temporary improvement in his symptoms that afternoon and likely the next day but then has been having worsening of pain for the past 3 days and was especially bothersome overnight. He has had what he describes as a pretty extensive workup for neck and shoulder issues in the past. He has seen a specialist to Orthopedics for the shoulder definitely within the last year but was told he would not benefit likely from surgery or injections but he had rotator cuff disease. I am unfortunately not as the liberty of having access to those records. He has also seen a provider at [facility] he reports and has had advanced imaging of the cervical spine through them. Unfortunately, I also do not have access to those records. But states that no injections or other interventions were recommended at the time. He has not had any steroid treatments. No prior injections or surgeries. He does follow pretty diligently with the physical therapist when he gets flare-ups of these things, no recent visit but is physical therapist has thought that his ongoing neck issues may be more related to a problem in the shoulder. Unfortunately, I also do not have access to those records. Patient has been using some Tylenol and ibuprofen overnight with limited and temporary improvement in symptoms. No shortness of breath, no cardiac changes. No skin or neurological associated changes. Reports his past medical history is notable for orthostatic hypotension, chronic does not take any long-term medications for this. He also has glaucoma managed with eyedrops. He has seen multiple specialty providers but no interventions have been recommended. No known drug allergies. Only home medications are his eyedrops. Nonsmoker. ROS is notable for the musculoskeletal symptoms as above only. Denies any other generalized, musculoskeletal, neurological, vascular or skin changes. Related Data Home Medications ?Medication ?Instructions ?Recorded ?Confirmed latanoprost 0.005 % eye drops drp ophthalmic (eye) 10/11/22 03/01/24 timolol maleate 0.5 % eye drops drp ophthalmic (eye) 10/11/22 03/01/24 Previous Rx's ?Medication ?Instructions ?Recorded cyclobenzaprine 5 mg tablet 5 - 10 mg (1 - 2 x 5 mg) PO QHS 02/12/25 PRN muscle spasm #20 tabs prednisone 20 mg tablet 20 mg PO BID 5 days #10 tabs 02/12/25 tramadol 50 mg tablet 50 mg PO Q6H PRN pain #12 tabs 02/12/25 Allergies Allergy/AdvReac Type Severity Reaction Status Date / Time No Known Drug Allergies Allergy Verified 03/01/24 18:06 PFSH PFSH Medical History Prostate cancer (2013) ?C61 - Malignant neoplasm of prostate (ICD-10) Greater trochanteric bursitis of both hips ?M70.61 - Trochanteric bursitis, right hip (ICD-10) ?M70.62 - Trochanteric bursitis, left hip (ICD-10) Surgical History H/O hernia repair ?Z98.890 - Other specified postprocedural states (ICD-10) ?Z87.19 - Personal history of other diseases of the digestive system (ICD-10) S/P right knee arthroscopy ?Z98.890 - Other specified postprocedural states (ICD-10) Social History Smoking Status: Former smoker What tobacco products do you use: cigarettes Smoking quit date/years: >15 years ago Do you use any of these nicotine containing products: None Second hand tobacco smoke exposure: No Exam Const: Vital Signs, click to edit/add: Vital Signs - 24 hr 02/12/25 12:57 Temperature 98.7 F Pulse Rate [Pulse Oximeter] 55 L Respiratory Rate 16 Blood Pressure [Ri ght Upper Arm] 130/67 Pulse Oximetry 98 Oxygen Delivery Me thod Room Air Documenting provider has reviewed patient's vital signs: yes Common normals: no apparent distress General appearance: cooperative and well kempt Other: Appears mildly uncomfortable but no distress. Good historian. HENMT: Common normals: normocephalic and moist oral mucous membranes Head and scalp: normocephalic Face and sinus: normal facial exam Eye: General eye: normal appearance of both eyes Neck & C-Spine: Common normals: full ROM Other: Quite tender to palpation of the left levator scapulae and trapezius area. There is no point bony tenderness on the cervical spine. He does have normal flexion and extension. Spondylosis testing of the cervical spine is slightly positive on the left. Resp: Common normals: normal respiratory effort Effort & inspection: able to speak in complete sentences Extremity: Other: Both shoulders with normal range of motion. Impingement signs are actually negative on the left. There is a 4/5 weakness to the rotator cuff on the left but normal on the right. It was not tender to manipulation. Strength is normal in both hands, equal and symmetric. Normal sensation in the arms. Psych: Appearance: well kempt Attitude: engaged Insight: insight good Judgement: judgment good Skin: Common normals: no rashes or lesions noted General skin exam: no rashes or lesions noted Course Course ED Course: 84-year-old male with muscular left neck pain likely secondary to cervical radiculopathy. It sounds like he has had extensive outpatient workup including advanced imaging. There has been no new injury that would suggest fracture or new spinal cord involvement. I do think this is primarily a shoulder problem. Exam is quite reassuring today. This was reviewed with him. Doing lower yield imaging when he has had such high quality imaging in the past not likely to be helpful either. We discussed treatment options. I am recommending a course of steroids. He will receive 40 mg of prednisone here in the ED as well as 100 mg of tramadol and 5 mg of cyclobenzaprine. He is counseled to continue Tylenol 1000 mg every 6 hours and ibuprofen 4-600 mg every 6 hours for pain. Adding in tramadol if the pain is severe. Will take prednisone 20 mg b.i.d. for 5 days and is given a supply of 5-10 mg of Flexeril at bedtime if needed. We discussed how he will need to follow up with his specialty team. I would recommend following up with whomever he has previously seen for his cervical spine or his primary care provider for further guidance. The steroids will be a temporary calm down of the inflammation but will not likely give any long-term relief. We reviewed the indications to come back to the ED including sudden loss of neurological function or worsening. He verbalizes understanding and agreement. All questions answered. Written instructions provided Vital Signs Vital signs: Initial Vital Signs Temperature 98.7 F 02/12/25 12:57 Temperature Source Temporal Artery Scan 02/12/25 12:57 Pulse Rate 55 L 02/12/25 12:57 Respiratory Rate 16 02/12/25 12:57 Blood Pressure 130/67 02/12/25 12:57 Blood Pressure Mean 88 02/12/25 12:57 Blood Pressure Position Sitting 02/12/25 12:57 Pulse Oximetry 98 02/12/25 12:57 Oxygen Delivery Method Room Air 02/12/25 12:57 Vital Signs Temperature 98.7 F 02/12/25 12:57 Pulse Rate 55 L 02/12/25 12:57 Respiratory Rate 16 02/12/25 12:57 Blood Pressure 130/67 02/12/25 12:57 Pulse Oximetry 98 02/12/25 12:57 Oxygen Delivery Method Room Air 02/12/25 12:57 Temperature 98.7 F 02/12/25 12:57 Pulse Rate 55 L 02/12/25 12:57 Respiratory Rate 16 02/12/25 12:57 Blood Pressure 130/67 02/12/25 12:57 Pulse Oximetry 98 02/12/25 12:57 Oxygen Delivery Method Room Air 02/12/25 12:57 Medications Administered Medications: Discontinued Medications Generic Name Dose Route Start Last Admin Trade Name Vinicius PRN Reason Stop Dose Admin Cyclobenzaprine HCl 5 mg 02/12/25 13:24 02/12/25 13:38 Cyclobenzaprine Hcl 10 Mg Tablet PO 02/12/25 13:25 5 mg ONCE ONE Administration Prednisone 40 mg 02/12/25 13:24 02/12/25 13:38 Prednisone 20 Mg Tablet PO 02/12/25 13:25 40 mg ONCE ONE Administration Tramadol HCl 100 mg 02/12/25 13:24 02/12/25 13:38 Tramadol Hcl 50 Mg Tablet PO 02/12/25 13:25 100 mg ONCE ONE Administration Discharge Plan Discharge Clinical Impression: Cervical radiculopathy Patient Disposition: Home w/ Parent or Adult Condition: Stable Instructions: Cervical Radiculopathy (ED) Additional Instructions: As we discussed, I do agree that this pain that your having on the side of the neck is from previously existing arthritis. It is not unusual for this to seem to flare up without much rhyme or reason. It is important that you follow-up with your orthopedic or neck specialist provider that has previously evaluated this. Unfortunately, I will not have access to their records to give you better direction on that today. In the meantime, these do tend to respond to oral steroids to help calm down the inflammation. We have started you on prednisone. I would like for you to take another dose tonight at approximately 10pm. Unfortunately, this may cause a little bit of insomnia but I think it is important that we be aggressive with this steroids initially to help calm down the inflammation. After tonight's dose, take your subsequent doses at typical breakfast time on Friday morning, then try to stagger the remaining doses to early evening and morning. You will take the steroids 1 pill 2 times daily for 5 days. Try to take your prednisone with food For pain, keep using the Tylenol 1000 mg every 6-8 hours, max of 3000 mg daily for someone your age. Ibuprofen would be 400-600 mg every 6-8 hours, max of 2400 mg per day. This type of pain can make sleep quite difficult. Because of this I am prescribing a muscle relaxant at bedtime. You may take 1-2 tablets as needed to help with muscle tightness and with sleep. Two tablets may be too sedating for you, I recommend starting with 1 until you are familiar with the effects. In addition to taking the Tylenol and ibuprofen as described above, I am also prescribing tramadol, a narcotic pain medication. You may use 1 tablet up to every 6 hours as needed for severe pain. Your likely to need this for the 1st 24-48 hours until the prednisone has more time to kick in. It is okay to continue with massage therapy if you find this helpful. If you have sudden loss of function in the arms, severe weakness or other major neurological changes, please return to the emergency department. Activity Level: Activity as Tolerated Discharge Diet: Regular Prescriptions: New prednisone 20 mg tablet 20 mg PO BID 5 Days Qty: 10 0RF tramadol 50 mg tablet 50 mg PO Q6H PRN (Reason: pain) Qty: 12 0RF cyclobenzaprine 5 mg tablet 5 - 10 mg PO QHS PRN (Reason: muscle spasm) Qty: 20 0RF No Action latanoprost 0.005 % drops ophthalmic (eye) timolol maleate 0.5 % drops ophthalmic (eye) Follow Up/Referrals: Rigoberto Simmons MD [Primary Care Provider, Family Practice] Stand Alone Forms: [facility] Info Instructions
== END 2025-02-12 13:51 | disposition home or self-care (01) ==
PROVIDERS: Emergency Provider Family Medicine; PCP Family Medicine
DX: M54.12 Radiculopathy, cervical region (principal)
CPT/HCPCS: 99283; A9270; J7512

== ENCOUNTER 2025-04-12 11:01 | Outpatient (CLI) | payer MEDICARE, SELFPAY ==
[2025-04-12 11:23] LABS: Hematocrit* 29.0 % (37.0-53.0); Hemoglobin* 9.1 gm/dL (13.5-17.5); Immature Granulocytes Abs Auto 0.07 K/uL (0.00-0.30); Immature Granulocytes Pct Auto 1.3 %; Mean Corpuscular HGB Conc 31 gm/dL (32-36); Mean Corpuscular Hemoglobin 32 pg (26-34); Mean Corpuscular Volume 101 fL (80-100); RDW Coefficient of Variation % 14.5 % (11.5-15.5); Red Blood Count* 2.87 m/uL (4.30-5.90); White Blood Count* 5.35 K/uL (4.50-11.00)
[2025-04-12 11:27] LABS: Lymphocytes Absolute Auto 2.40 K/uL (0.90-2.90); Slide Review Reflex No
[2025-04-12 11:41] LABS: Creatinine* 1.1 mg/dL (0.5-1.5); Estimated Glomerular Filt Rate 66 ml/min
[2025-04-12 12:32] LABS: Vitamin B12* 913 pg/mL (243-894)
== END 2025-04-12 11:02 | disposition home or self-care (01) ==
PROVIDERS: PCP Family Medicine; Visit Provider Internal Medicine
DX: C93.10 Chronic myelomonocytic leukemia not having achieved remission (principal)
CPT/HCPCS: 36415; 82565; 82607; 82728; 85025